=== PATIENT | female | born 1945 | race Caucasian/White ===

== ENCOUNTER → 2024-08-22 | Outpatient (CLI) | payer MEDICARE, BC, SELFPAY ==
[2024-08-22 11:50] LABS: Basophils # (Auto) 0.1 Thou/mm3 (0.0-0.2); Basophils % (Auto) 1 % (0-2.5); Eosinophils # (Auto) 0.1 Thou/mm3 (0.0-0.5); Eosinophils % (Auto) 3 % (0-10); Hematocrit 40.7 % (36.0-46.0); Hemoglobin 13.9 g/dL (12.0-16.0); Immature Granulocytes % (Auto) 0 % (0-0); Immature Granulocytes Auto 0.01 Thou/mm3 (0.00-0.00); Lymphocytes # (Auto) 1.5 Thou/mm3 (1.0-4.8); Lymphocytes % (Auto) 31 % (10-50); Mean Corpuscular HGB Conc 34.2 g/dl (31.0-37.0); Mean Corpuscular Volume 94 fL (80-100); Monocytes # (Auto) 0.5 Thou/mm3 (0.0-0.8); Monocytes % (Auto) 11 % (0-12); Neutrophils # (Auto) 2.5 Thou/mm3 (1.8-7.7); Neutrophils % (Auto) 53 % (37-80); Nucleated Red Blood Cell % 0 /100 WBC (0); Platelet Count 273 Thou/mm3 (140-440); RDW Standard Deviation 48.4 fL (36.4-46.3); Red Blood Count 4.35 Miln/mm3 (4.00-5.20); White Blood Count 4.7 Thou/mm3 (3.6-11.0)
[2024-08-22 12:09] LABS: Alanine Aminotransferase 18 U/L (10-49); Albumin, Serum 4.6 gm/dL (3.4-4.8); Albumin/Globulin Ratio 1.8 (1.2-2.2); Alkaline Phosphatase 69 U/L (46-116); Anion Gap 8 (7-16); Aspartate Amino Transferase 22 U/L (0-34); BUN/Creatinine Ratio 14 Ratio (12-20); Bilirubin,Total 0.6 mg/dL (0.3-1.2); Blood Urea Nitrogen 11 mg/dL (9-23); Calcium 10.2 mg/dL (8.3-10.6); Calcium (Corrected) 10.2 mg/dL (8.5-10.1); Carbon Dioxide 26.5 mMol/L (20.0-31.0); Chloride 102 mMol/L (98-107); Creatinine (Component) 0.8 mg/dL (0.6-1.3); Globulin 2.6 gm/dL (2.3-3.5); Glucose 98 mg/dL (74-106); Osmolality,Calculated 271 (275-295); Potassium 4.3 mMol/L (3.4-5.1); Sodium 136 mMol/L (136-145); Total Protein 7.2 gm/dL (5.7-8.2); eGFR > 60 See Note
[2024-08-22 12:31] LABS: CA 15-3 12.5 U/mL (<32.4); Carcinoembryonic Antigen 1.9 ng/mL (0.0-5.0)
== END | disposition home or self-care (01) ==
LOC: SCTO 10:00
PROVIDERS: PCP Internal Medicine; Referring Provider Nurse Practitioner Family; Visit Provider Nurse Practitioner Family
DX: C50.512 Malignant neoplasm of lower-outer quadrant of left female breast (principal)
CPT/HCPCS: 36415; 80053; 82378; 85025; 86300

== ENCOUNTER 2024-08-27 11:23 | Outpatient (RCR) | payer MEDICARE, BC, SELFPAY ==
--- NOTE | 2024-09-02 06:05 | CTCFLWUP_ITS ---
Patient: CHANTAL WALKER : 1945 Page 2 of 2 FOLLOW UP NOTE DATE OF SERVICE: 08/27/2024 NAME: CHANTAL WALKER ACCOUNT: [id number] : 1945 AGE: 79 REASON FOR VISIT: Follow-up on stage I breast cancer diagnosed in 2019 INTERVAL HISTORY: Patient is 79-year-old woman with a history of stage I breast cancer diagnosed in 2019. Patient has been on letrozole and not tolerating well Today patient is very concerned that she was gaining weight and have low energy. Patient is saying t hat she has increased her cardiovascular risk with the letrozole and would like to stop it. Patient says that she is very active and do not think her cancer will come back. PREVIOUS NOTE: Chantal Walker is a 79-year-old ENG speaking female with following oncolog y history. 12/04/2018: Screening mammograms done in [place] reportedly showed a 1 cm oval nodule in the left [address] st. 12/31/2018: Patient had ultrasound-guided biopsy of the left breast with marking device. 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 Oncotype DX: Recurrence score 4. Distant recurrence risk at 9 years 3%. 02/08/2019: Patient had left breast partial mastectomy and sentinel lymph node biopsy. She was found to have a 0.6 x 0.5 x 0.4 cm small slight firm area. Pathology showed encapsulated papillary carcinoma, solid varian t. Negative for conventional invasive ductal carcinoma. 2 sentinel lymph nodes were negative for metastatic disease. 05/06/2019?06/04/2019: Patient received 5256 cGy radiation to the left breast. 08/25/2019: Bone density test?Impression: There is osteopenia based on lumbar spine measurements. There is osteopenia based on hip measurements Lumbar mineralization is increased 1.2% compared with A pri2016 Hip mineralization is increased 5.8% compared with January 10, 2017 09/24/2019: Patient was started on letrozole. Advised her to continue taking calcium and vitamin D tab let on a daily basis. 03/04/2021: Left axillary biopsy? 07/28/2021: Ultrasound of the left breast?BI-RADS Category 1: Negative study. 11/17/2021: Bone density test? 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 Currently on adjuvant letrozole as well as calcium tablets p.o. twice daily. 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 Aspirin Child - 81 mg As directed 2. Benadryl - 25 mg 1 Capsule As needed 3. Bystolic - 10 mg Daily 4. Calcium 600 + D(3) - 600 mg(1,500mg) -400 unit 1 tab Twice a Day 5. chlorthalidone - 25 mg 1 tab As directed 6. doxazosin - 2 mg Twice a Day 7. ibuprofen - 200 mg 2 Capsule Every day before sleep 8. KRILL OIL - 750 mg As directed 9. latanoprost - As directed 10. letrozole - 2.5 mg 1 tab Daily 11. multivitamin - 1 Capsule Daily 12. simvastatin - 20 mg As directed Medications Last Reconciled by Jennifer Rudolph MA on 08/27/2024 ALLERGIES: No Known Allergies; No Known Drug Allergies REVIEW OF SYSTEMS: A complete 14-point review of systems was performed and is negative except as noted in interval histo ry. PHYSICAL EXAMINATION: VITAL SIGNS: Temperature?99, B/P?168/93, Oxygen?Saturation?97% Weight?135?lbs PAIN: 0 - No pain ECOG Performance Status: 0 - Asymptomatic and fully active GENERAL APPEARANCE: Appears well, in no apparent distress, appropriately interactive. HEENT: Normocephalic, no temporal wasting, normal conjunctiva, no scleral icterus, normal hearing, li ps without lesions, neck normal range of motion. CARDIOVASCULAR: Not assessed. PULMONARY: Normal respiratory effort, no respiratory distress or use of accessory muscles, speaking i n full sentences, no tachypnea. EXTREMITIES: No pedal edema or cyanosis. SKIN: Normal skin appearance. NEUROLOGIC: Alert and ORIENTED x4. PSHYCHIATRIC: Appropriate affect, mood normal, behavior normal, intact thought and speech. LABORATORY DATA: I have personally reviewed and interpreted each of the patient?s relevant lab tests, abnormal finding s are below: Date 08/22/24 ??WHITE?BLOOD?COUNT?(Thou/mm3) 4.7 ??RED?BLOOD?COUNT?(Miln/mm3) 4.35 ??HEMOGLOBIN?(gm/dl) 13.9 ??HEMATOCRIT?(%) 40.7 ??PLATELET?COUNT?(Thou/mm3) 273 ??NEUTROPHILS?%,?AUTO?(%) 53 ??LYMPH?%,?AUTO?(%) 31 ??NEUTROPHILS,?AUTO?(Thou/mm3) 2.5 IMPRESSION/PLAN: #1. 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 Patient do not want to continue letrozole She does not want to do tamoxifen later No evidence of recurrence Continue to monitor every 6 months Advised to do yearly mammograms CBC CMP CA 15-3 before next visit #2. Osteopenia, DEXA done on 01/30/2024 Continue calcium twice daily. Reports she was unable to tolerate Fosamax many years ago, due to jaw pain. Reclast previously ordered, patient aware that biphosphonate treatment dental clearance is needed karma or to starting Reclast, patient is unsure if she is going to proceed with Reclast at this time due to possible dental work soon. #3. Hypertension patient do not believe that her blood pressure is real I extensively counseled that she may stroke out or have myocardial infarction secondary to uncontroll ed blood pressure She want to stop letrozole to see if her blood pressure resolves itself Counseled and advised to continue following up with PCP for management. CBC CMP CA 15-3 yearly mammogram RETURN TO CLINIC: 6 months BILLING AND COMPLIANCE: I reviewed external records from providers outside my specialty as summarized above. I spent a total of 50 minutes on this patient?s care on the day of their visit excluding time spent related to any bi lled procedures. This time includes time spent with the patient as well as time spent documenting in the medical record, reviewing patients records and tests, obtaining history, placing orders, communi cating with other healthcare professionals, counseling the patient, family or caregiver, and/or care coordination for the diagnoses above. Electronically Signed by: Gilbert Jacobs MD T: 6:03 AM CC: Atif?Bart,? PCP: Dash Bonner Referring: Dash Bonner This document was completed utilizing speech recognition software. Grammatical errors, random word in sertions, pronoun errors, and incomplete sentences are an occasional consequence of this system due t o software limitations, ambient noise, and hardware issues. Any formal questions or concerns about th e content, text or information contained within the body of this dictation should be directly address ed to the provider for clarification.
== END 2024-09-17 23:59 | disposition home or self-care (01) ==
LOC: SCTC 11:23
PROVIDERS: PCP Internal Medicine; Referring Provider Internal Medicine; Visit Provider Internal Medicine Hematology & Oncology
DX: Z08 Encounter for follow-up examination after completed treatment for malignant neoplasm (principal); Z85.3 Personal history of malignant neoplasm of breast; Z90.12 Acquired absence of left breast and nipple; M85.89 Other specified disorders of bone density and structure, multiple sites; I10 Essential (primary) hypertension
CPT/HCPCS: 99212; G0463

== ENCOUNTER → 2024-11-07 | Outpatient (CLI) | payer MEDICARE, BC, SELFPAY ==
[2024-11-07 10:54] LABS: Alanine Aminotransferase 16 U/L (10-49); Albumin, Serum 4.3 gm/dL (3.4-4.8); Albumin/Globulin Ratio 1.7 (1.2-2.2); Alkaline Phosphatase 75 U/L (46-116); Anion Gap 8 (7-16); Aspartate Amino Transferase 17 U/L (0-34); BUN/Creatinine Ratio 17 Ratio (12-20); Bilirubin,Total 0.7 mg/dL (0.3-1.2); Blood Urea Nitrogen 12 mg/dL (9-23); Carbon Dioxide 25.5 mMol/L (20.0-31.0); Cardiac Risk Estimate 2.9 RATIO (3.7-5.6); Chloride 102 mMol/L (98-107); Cholesterol 188 mg/dL (132-200); Creatinine (Component) 0.7 mg/dL (0.6-1.3); Globulin 2.6 gm/dL (2.3-3.5); Glucose 96 mg/dL (74-106); HDL Cholesterol 65 mg/dL (40-60); LDL Cholesterol,Calculated 104 mg/dL (0-130); Osmolality,Calculated 269 (275-295); Potassium 4.4 mMol/L (3.4-5.1); Sodium 135 mMol/L (136-145); Total Protein 6.9 gm/dL (5.7-8.2); Triglycerides 94 mg/dL (30-150); eGFR > 60 See Note
== END | disposition home or self-care (01) ==
PROVIDERS: PCP Internal Medicine; Referring Provider Internal Medicine; Visit Provider Internal Medicine
DX: I10 Essential (primary) hypertension (principal); E78.5 Hyperlipidemia, unspecified
CPT/HCPCS: 36415; 80053; 80061

== ENCOUNTER → 2024-11-29 | Outpatient (CLI) | payer MEDICARE, BC, SELFPAY ==
[2024-11-29 11:10] LABS: Albumin, Serum 4.2 gm/dL (3.4-4.8); Anion Gap 8 (7-16); BUN/Creatinine Ratio 21 Ratio (12-20); Blood Urea Nitrogen 17 mg/dL (9-23); Calcium 9.7 mg/dL (8.3-10.6); Calcium (Corrected) 9.7 mg/dL (8.5-10.1); Carbon Dioxide 29.2 mMol/L (20.0-31.0); Chloride 98 mMol/L (98-107); Creatinine (Component) 0.8 mg/dL (0.6-1.3); Glucose 102 mg/dL (74-106); Osmolality,Calculated 271 (275-295); Potassium 4.6 mMol/L (3.4-5.1); Sodium 135 mMol/L (136-145); eGFR > 60 See Note
== END | disposition home or self-care (01) ==
PROVIDERS: PCP Internal Medicine; Referring Provider Internal Medicine; Visit Provider Internal Medicine
DX: I10 Essential (primary) hypertension (principal)
CPT/HCPCS: 36415; 80069

== ENCOUNTER → 2024-12-03 | Outpatient (CLI) | payer MEDICARE, BC, SELFPAY ==
--- NOTE | 2024-12-03 13:52 | XR_ITS ---
Examination: Retroperitoneal ultrasound, complete Technique: Multiple high resolution grayscale images of the retroperitoneum obtained, including kidneys and bladder. Exam date and time:December 03, 2024 1400 hours INDICATIONS: Uncontrolled hypertension one month FINDINGS: Right kidney 11.2 cm cortex 1.1 cm 10 mm upper pole cyst 18 mm lower pole cyst Left kidney 10.3 cm cortex 1.8 cm Minimal left hydronephrosis 9 mm upper pole cyst Mild bilateral renal parenchymal scar formation IMPRESSION: Bilateral renal cortical thinning Mild bilateral renal parenchymal scar formation Minimal left hydronephrosis No bladder mass
--- NOTE | 2024-12-03 13:52 | XR_ITS ---
Examination: Renal sonography Renal Doppler sonographic evaluation of the kidneys Exam date and time: December 03, 2024 1435 hours INDICATIONS: Uncontrolled hypertension beginning several months ago TECHNIQUE AND FINDINGS: Right kidney 11.0 cm Elevation of peak systolic velocity in the mid right renal artery Renal aortic ratio 3.0 Mild elevation resistive indices Left kidney 9.7 cm Elevation peak systolic velocity in the distal renal artery Mild elevation resistive indices Renal aortic ratio 4 IMPRESSION: Sonographic Doppler findings of moderate right and significant left renal artery stenosis Recommend correlation with MRA renal arteries without contrast follow-up
[2024-12-03 15:28] LABS: Misc Send Out* See Sep Rpt
[2024-12-10 07:45] LABS: Aldosterone* 2 ng/dL
[2024-12-12 06:31] LABS: Renin Activity, Plasma* 0.29 ng/mL/h (0.25-5.82)
== END | disposition home or self-care (01) ==
LOC: COPL 13:22
PROVIDERS: PCP Internal Medicine; Referring Provider Internal Medicine; Visit Provider Internal Medicine
DX: I10 Essential (primary) hypertension (principal)
CPT/HCPCS: 36415; 76770; 82088; 84244; 93975

== ENCOUNTER 2025-01-23 09:55 | Day surgery (SDC) | payer MEDICARE, BC, SELFPAY ==
[2025-01-21 17:31] VITALS: BMI 19.8
--- NOTE | 2025-01-22 10:25 | EKG_ITS ---
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
[2025-01-22 12:54] LABS: Basophils # (Auto) 0.1 Thou/mm3 (0.0-0.2); Basophils % (Auto) 1 % (0-2.5); Eosinophils # (Auto) 0.1 Thou/mm3 (0.0-0.5); Eosinophils % (Auto) 1 % (0-10); Hematocrit 36.8 % (36.0-46.0); Hemoglobin 13.2 g/dL (12.0-16.0); Immature Granulocytes % (Auto) 0 % (0-0); Immature Granulocytes Auto 0.02 Thou/mm3 (0.00-0.00); Lymphocytes # (Auto) 1.2 Thou/mm3 (1.0-4.8); Lymphocytes % (Auto) 16 % (10-50); Mean Corpuscular HGB Conc 35.9 g/dl (31.0-37.0); Mean Corpuscular Volume 89 fL (80-100); Monocytes # (Auto) 0.9 Thou/mm3 (0.0-0.8); Monocytes % (Auto) 12 % (0-12); Neutrophils # (Auto) 4.9 Thou/mm3 (1.8-7.7); Neutrophils % (Auto) 70 % (37-80); Nucleated Red Blood Cell % 0 /100 WBC (0); Platelet Count 350 Thou/mm3 (140-440); RDW Standard Deviation 42.9 fL (36.4-46.3); Red Blood Count 4.13 Miln/mm3 (4.00-5.20); White Blood Count 7.1 Thou/mm3 (3.6-11.0)
[2025-01-22 13:01] LABS: Anion Gap 5 (7-16); BUN/Creatinine Ratio 16 Ratio (12-20); Blood Urea Nitrogen 13 mg/dL (9-23); Calcium 9.5 mg/dL (8.3-10.6); Carbon Dioxide 27.3 mMol/L (20.0-31.0); Chloride 93 mMol/L (98-107); Creatinine (Component) 0.8 mg/dL (0.6-1.3); Estimated Creatinine Clearance 51.9 mL/min (>60); Glucose 84 mg/dL (74-106); Osmolality,Calculated 250 (275-295); Potassium 4.6 mMol/L (3.4-5.1); Sodium 125 mMol/L (136-145); eGFR > 60 See Note
[2025-01-22 13:02] LABS: INR 0.9 (0.9-1.3); Partial Thromboplastin Time 29.3 Seconds (22.0-36.0); Prothrombin Time 10.3 Seconds (9.0-12.2)
[2025-01-23] VITALS (17 sets, daily range): BP systolic 121–177; BP diastolic 65–96; PULSE 54–68; RESP 12–22; TEMP 36.2–36.5; O2SAT 99–100
--- NOTE | 2025-01-23 14:04 | ESOP_ITS ---
RE: ANIA OCHOA : 1945 DATE OF OPERATION: 01/23/2025 PROCEDURE PERFORMED: 1. left heart catheterization, coronary angiogram left ventricular angiogram, CPT 66524. 2. Conscious sedation 30 minutes duration. 3. Ultrasound-guided access, right radial artery. 4. Selective cannulation of right and left renal arteries and bilateral selective renal angiogram. CPT 37023 DIAGNOSES: Coronary artery disease, abnormal stress test, renovascular hypertension, and renal artery stenosis. HISTORY AND INDICATIONS: The patient is a 79-year-old female with history of hypertension, hypercholesterolemia, recurrent episodes of shortness of breath, unspecified angina, cardiac stress test with nuclear scan was abnormal showed mild inferior wall ischemia. Coronary angiogram was recommended to assess the patient is a candidate for intervention. The patient also has severe hypertension, difficulty controlling four medications and also had renal ultrasound as well as renal artery Duplex scan showed suspicious for right renal artery stenosis. Bilateral renal angiogram was recommended and coronary angiogram was recommended for further assessment. DESCRIPTION OF PROCEDURE: The patient was brought to [facility] catheterization laboratory. She was given 2 mg of Versed and 50 mcg of fentanyl for sedation. Right radial approach was taken. Right radial artery was cannulated with micropuncture technique. Ultrasound guidance was used. Apparently with a right radial artery, 5-Upper Sorbian sheath was introduced. Selective right and left coronary angiogram performed. Left heart catheterization, left ventricular angiogram performed by TIG-4, 5-Upper Sorbian diagnostic catheter. Left coronary angiogram performed by TIG-4 diagnostic catheter. Right coronary angiogram performed by FR4 diagnostic catheter. Using AL1, I was able to cross over the left side to the aorta, but unable to reach the renal artery, so therefore for diagnostic catheter switch to the femoral approach. Right femoral artery was cannulated by micropuncture technique and a 5-Upper Sorbian sheath was introduced. A 5-Upper Sorbian FR4 diagnostic catheter was used to perform selective left renal angiogram and nonselective right renal angiogram was also performed by selective cannulation of right renal artery. Bilateral renal angiogram performed. The patient tolerated the procedure well. No complications. Findings are as follows. Cardiac catheterization showed the following findings. Hemodynamics: Left ventricular pressure 130, EDP is 5, aortic pressure 130/75. No gradient across the aortic valve. Left ventricular angiogram showed normal left ventricular wall motion, ejection fraction 70%. Coronary angiogram showed following findings: Right coronary artery large and dominant showed calcification of the proximal mid segment. There is evidence of 40% stenosis of the proximal right coronary artery, 50% to 60% stenosis of mid right coronary artery calcification, not significant or intervention. PDA and posterolateral branches are normal. Left coronary system, left main coronary artery is normal. There is some calcification. No stenosis. Left anterior descending artery showed calcification, no stenosis. First diagonal branch and left anterior descending artery, a 2.5 mm vessel showed 70% to 80% stenosis, discrete lesion. Second vessel is nondominant, appeared normal, gives off obtuse marginal branch. Bilateral renal angiogram findings are as follows: Abdominal aorta appears to be normal. No evidence of abdominal aortic aneurysm. Right renal artery showed mild calcification and mild plaque 10% stenosis of the proximal right renal artery. No evidence of fibromuscular dysplasia. Left renal artery showed mild calcification of the ostium. No significant stenosis. There is mild plaque with 10 to 20% narrowing in the proximal left renal artery. SUMMARY OF FINDINGS: 1. Moderate right coronary artery stenosis, 50% to 60% stenosis. 2. Moderate 70% stenosis of the left anterior descending artery - diagonal branch of the left anterior descending artery only. 3. Mild stenosis of both right and left renal arteries less than 20% stenosis. RECOMMENDATIONS: 1. The patient is reassured there is no evidence of renal artery stenosis that required intervention. 2. The patient does have 70% to 80% stenosis of LAD-first diagonal branch of the left anterior descending artery, which is 2.5 mm vessel. We will continue medical management. The patient also has moderate right coronary artery stenosis, will be monitored. Aggressive statin therapy to LDL cholesterol to a goal of 50 and controlled present antihypertensive drug therapy. If she has significant worsening of angina and maximum medical management, she is a candidate for PCI of the right coronary artery, possibly diagonal branch of the left anterior descending artery. Currently, maximum medical management is recommended. cc: Dash Bonner MD DT: 13:13:19 TT: 14:03:00 Ref: [id number] - TID: [id number] MTDD
--- NOTE | 2025-01-23 15:45 | PC.NURSE ---
1335 patient is awake, alert, breathing unlabored, s/p C with PCI, TR band to right wrist, with no bleeding or hematoma. Arterial right groin sheat removed by Robyn SHERIDAN at 1315, manual pressure applied for 20 minutes, dressing applied, no bleeding or hematoma noted. Report received from Robyn SHERIDAN patient to recover until 1630 or 1hr post TR band removal. 1410 1ml air air removed from TR band , no bleeding or hematoma noted 1425 3ml air removed from TR band, no bleeding or hematoma noted 1440 small amount of bleeding noted to TR band site, 3ml air inserted, bleeding stopped 1510 2ml air removed from TR band, no bleeding or hematoma noted 1525 2ml air removed from TR band, no bleeding or hematoma noted 1545 3ml air removed from TR band, no bleeding or hematoma noted
--- NOTE | 2025-01-23 16:04 | PC.NURSE ---
1558 aptient awake, alert, breathing unlabored, dressing to righg groin dry with no bleeding or hematoma, report given to Robyn SHERIDAN, patient to be discharged home 1hr post TR band removal
== END 2025-01-23 17:10 | disposition home or self-care (01) ==
PROVIDERS: PCP Internal Medicine; Referring Provider Internal Medicine Cardiovascular Disease; Visit Provider Internal Medicine Cardiovascular Disease
PROC: (CPT 93458; principal; 2025-01-23 11:30)
DX: I25.119 Atherosclerotic heart disease of native coronary artery with unspecified angina pectoris (principal); I15.0 Renovascular hypertension; I10 Essential (primary) hypertension; E78.00 Pure hypercholesterolemia, unspecified; Z82.49 Family history of ischemic heart disease and other diseases of the circulatory system; Z79.899 Other long term (current) drug therapy; I70.1 Atherosclerosis of renal artery
CPT/HCPCS: 93458; 36252; 36415; 80048; 85025; 85610; 85730; 93005; 99152; 99153; A4649; C1769; C1887; C1894; J0171; J0360; J0461; J1643; J2250; J2310; J2371; J3010; J3490

== ENCOUNTER 2025-02-21 23:51 | Inpatient (IN) | payer MEDICARE, BC, SELFPAY ==
[2025-02-21 23:53] VITALS: BMI 19.5
[2025-02-22] VITALS (10 sets, daily range): BP systolic 119–179; BP diastolic 68–89; PULSE 63–78; RESP 16–19; TEMP 36.3–37.2; O2SAT 97–100
--- NOTE | 2025-02-22 00:07 | XR_ITS ---
Examination: CT brain head without contrast. 2-D sagittal coronal reconstructions Date and time of exam:February 22, 2025, 0057 hours INDICATIONS: Patient fell today with injury to the head, head pain CTDI: vol (mGy):47 DLP: (mGycm):935 Technique: Multiple CT axial sections of the brain have been obtained, 5 mm slice thickness. Contrast has not been administered. 2-D sagittal, coronal reconstructions have been obtained Low dose protocols were performed. One or more of the following dose reduction techniques were used; automated exposure control, adjustment of the mA and/or KV according to patient size, use of iterative reconstruction technique. Findings: No significant ventricular enlargement. Intra-axial or extra-axial hemorrhage density is not seen. No mass effect or midline shift Basal cisterns are not remarkable. Fourth ventricle is midline. Cranial vault intact. Impression: I do not visualize a definite acute hemorrhage but clinical correlation is advised and short-term follow-up recommended as clinically warranted
--- NOTE | 2025-02-22 00:07 | XR_ITS ---
Examination: CT cervical spine without contrast 2-D sagittal reconstructions 2-D coronal reconstructions 3-D reconstructions. Exam date and time:February 22, 2025 0057 hours INDICATIONS: Patient fell today with injury to the neck, neck pain CTDI:vol (mGy) 743 DLP: (mGycm) 160 Technique: Multiple 2 mm axial sections of the cervical spine have been obtained. The coronal and sagittal reconstructions have been obtained. 3-D reconstructions have been obtained. Low dose protocols were performed. One or more of the following dose reduction techniques were used; automated exposure control, adjustment of the mA and/or KV according to patient size, use of iterative reconstruction technique. Findings: Axial sections demonstrate intact base of the skull. Grade 1 anterolisthesis of C3 on C4, C4 on C5 and C1 exhibit satisfactory relationship to the odontoid. No acute cervical vertebral body fracture seen. Alignment posterior spinous processes satisfactory. Impression: No acute cervical fracture.
--- NOTE | 2025-02-22 00:16 | PD.EDHEAD ---
ED Head Injury RME/HPI General Chief complaint: Head Injury Stated complaint: TRIP AND FALL HEAD LAC DENIES LOC Time Seen by Provider: 02/22/25 00:07 Arrival date/time: 02/21/25 23:51 79F with history of HTN presents to ED with L head lac after trip and fall. Patient denies LOC, AMS, seizures, N/V, and vision changes. Patient has not had a tetanus shot in the past 5 years. Limitations: no limitations Related Data Home Medications ?Medication ?Instructions ?Recorded ?Confirmed latanoprost 0.005 % eye drops 1 drp ophthalmic (eye) QDAY 03/02/21 02/22/25 diphenhydramine HCl 25 mg capsule 25 mg PO QDAY PRN allergy symptoms 01/23/25 02/22/25 (Benadryl) krill oil 500 mg capsule 500 mg PO QDAY 01/23/25 02/22/25 nebivolol 5 mg tablet (Bystolic) 5 mg PO QDAY 01/23/25 02/22/25 ibuprofen 200 mg tablet (IBU-200) 400 mg PO HS PRN pain 02/22/25 02/22/25 multivitamin (Multiple Vitamins 1 tab PO QDAY 02/22/25 02/22/25 tablet) rosuvastatin 20 mg tablet 20 mg PO HS 02/22/25 02/22/25 calcium 600 mg (as cap PO Q12H 02/23/25 carbonate)-vitamin D3 5 mcg (200 unit) capsule (Calcium 600 + D(3)) Previous Rx's ?Medication ?Instructions ?Recorded sodium chloride 1,000 mg soluble 1,000 mg PO BID hyponatremia 14 02/24/25 tablet days #28 tabs Allergies Allergy/AdvReac Type Severity Reaction Status Date / Time No Known Allergies Allergy Verified 02/21/25 23:57 Review of Systems Review of Systems Systems Reviewed: All systems reviewed, normal except as documented Constitutional Constitutional: Reports system reviewed and no additional complaints, except as documented, Denies fever(s) and Denies headache(s) ENT Ears, Nose, Mouth, and Throat: Denies disequilibrium and Denies headache(s) Cardiovascular Cardiovascular: Reports system reviewed and no additional complaints, except as documented, Denies chest pain and Denies dyspnea Respiratory Respiratory: Reports system reviewed and no additional complaints, except as documented, Denies cough and Denies dyspnea Gastrointestinal Gastrointestinal: Reports system reviewed and no additional complaints, except as documented, Denies abdominal pain, Denies nausea and Denies vomiting Integumentary/Breasts Skin/Breast: Reports as per HPI and Reports skin pain Neurologic Neurologic: Reports system reviewed and no additional complaints, except as documented, Denies confusion, Denies disequilibrium and Denies headache(s) Psychiatric Psychiatric: Denies confusion Past Medical History Past Medical History NEUROLOGIC: Negative Neurological Disorders or Seizures CARDIAC: Positive Cardiac Disorders, Hypercholesterolemia and Hypertension; Negative Congestive Heart Failure or Edema RESPIRATORY: Negative Chronic Obstructive Pulmonary Disease (COPD), Asthma or Sleep Apnea GASTROINTESTINAL: Negative Gastrointestinal Disorders or Hepatitis GENITOURINARY: Negative Genitourinary Disorders or Renal Disease REPRODUCTIVE: Positive Previous Pregnancies MUSCULOSKELETAL: Positive Musculoskeletal Disorders, Arthritis and Carpal Tunnel Syndrome (LEFT); Negative Osteoporosis or Fractures ENDOCRINE: Negative Endocrine Disorders, Diabetes Mellitus Type 1 or Diabetes Mellitus Type 2 HEMATOLOGIC: Negative Blood Disorders or Anemia OTHER HISTORY: Positive Chicken Pox, Measles, Mumps, Rubella ([place] Measles) and Pertussis; Negative Autoimmune Disease, Shingles, Falls, Blood Transfusions, Anesthesia Reactions, MRSA, Human Immunodeficiency Virus (HIV), Clostridium Difficile or Cancer Family History FAMILY HISTORY: Positive Family Cardiac Disorders and Family Surgery; Negative Family Psychiatric Problems, Family Respiratory Disorders, Family Gastrointestinal Problems, Family Cancer or Family Anesthesia Reaction Surgical History SURGICAL: Positive Tonsillectomy and Lumpectomy (LEFT); Negative Cardiac Surgery, Endocrine Surgery, Abdominal Surgery, Nephrectomy or Neurologic Surgery Social History SMOKING STATUS: Never smoker ED Exam General Limitations: Present no limitations General appearance: Present alert and in no apparent distress Expanded Head Exam Head exam physical: Present laceration (2 cm L posterior) Eye Eye exam: Present normal appearance, PERRL and EOMI ENT ENT exam: Present normal exam, normal oropharynx and mucous membranes moist Neck Neck exam: Present normal inspection, full ROM and trachea midline Chest Chest inspection: Present normal inspection and symmetric chest wall rise Respiratory Respiratory exam: Present normal lung sounds bilaterally Cardiovascular Cardiovascular exam: Present regular rate, normal rhythm and normal heart sounds Abdominal Exam Abdominal exam: Present soft and normal bowel sounds Extremities Exam Extremities exam: Present normal inspection and full ROM Back Exam Back exam: Present normal inspection and full ROM Neurological Exam Neurological exam: Present alert, oriented X3 and CN II-XII intact Psychiatric Psychiatric exam: Present normal affect and normal mood Skin Skin exam: Present warm, dry, intact and normal color Course Quality Measures none Orders Category Date Time Status Insert IV NOW Care 02/22/25 03:47 Completed Stapler to Beside ONCE Care 02/22/25 00:19 Completed Wound Care NOW Care 02/22/25 00:[address] cervical spine wo con Stat Exams 02/22/25 00:[address] head/brain wo con Stat Exams 02/22/25 00:[address] head/brain wo con Stat Exams 02/22/25 05:27 Completed Alcohol, Blood Medical Stat Lab 02/22/25 07:36 Completed CBC Stat Lab 02/22/25 02:52 Completed CMP [Comprehensive Metabolic Panel] Stat Lab 02/22/25 02:52 Completed Drug Screen,Urine Stat Lab 02/22/25 12:05 Completed INR [Prothrombin Time with INR] Stat Lab 02/22/25 02:52 Completed PTT [Partial Thromboplastin Time] Stat Lab 02/22/25 02:52 Completed Sodium,Urine Random Stat Lab 02/22/25 12:05 Completed Thyroid Stimulating Hormone Stat Lab 02/22/25 02:52 Completed Uric Acid Stat Lab 02/22/25 02:52 Completed Urinalysis, C/S if Indicated Stat Lab 02/22/25 12:05 Completed Urine Culture Stat Lab 02/22/25 12:05 Completed TET,DIP/PERT AC (Adult)-Tdap [Boostrix Adult (Tdap) Med 02/22/25 00:07 Discontinued Vacc] 0.5 ml IMI .ONCE ONE Vital Signs Vital signs: Vital Signs Temperature 97.4 F 02/22/25 00:04 Pulse Rate 67 02/22/25 00:04 Respiratory Rate 18 02/22/25 00:04 Blood Pressure 170/85 H 02/22/25 00:04 Pulse Oximetry (%) 99 02/22/25 00:04 Oxygen Delivery Method Room Air 02/22/25 00:04 O2 at 99% on RA and WNLs Head Injury MDM Narrative MDM Narrative:: 79F with history of HTN presents to ED with L head lac after trip and fall. Patient denies LOC, AMS, seizures, N/V, and vision changes. Patient has not had a tetanus shot in the past 5 years. Physical exam reveals 2 cm L posterior scalp lac. Normal pupil response and EOM. Gait normal. Speech normal. Patient is afebrile, calm, and alert. GCS 15. Wound cleaned/irrigated and bandaged. Tdap given. CT reveals possible trace bilateral subdural hematomas. Spoke to Dr. Del Rosario, neurosurgeon at [facility], who recommends repeat CT in 6 hours and monitor. Can send to them if getting larger or change in GCS. He does not recommend seizure prophylaxis. Coags and CBC unremarkable. Sodium 118. Spoke to Dr. Del Rosario again, who states it is not relevant to possible subdural hematomas. Original recommendation still applies. Care signed out to colleague. Repeat CT no definite bleed. Patient admitted here. Patient data External records reviewed:: [facility] previous records Clinical information provided by:: patient Social determinants that could affect healthcare access:: none Patient has the following chronic illnesses:: HTN How is presenting disease/condition affected by chronic disease/condition?: no chronic disease Evaluation data The following diagnostics were reviewed and interpreted by me:: radiology exam(s) Lab and/or radiology exams considered but not ordered:: ordered Interpretation Summary: above Medications / Prescriptions Medications or Prescriptions considered but not ordered:: ordered Medication administrations:: Medication Administration History Discontinued Medications Acetaminophen (Acetaminophen 325 Mg Tablet) 650 mg PO Q6H PRN PRN Reason: Fever >101.5 Stop: 03/24/25 09:13 Acetaminophen (Acetaminophen 325 Mg Tablet) 650 mg PO Q6H PRN PRN Reason: Fever >100.3 or pain 1-3 Stop: 03/24/25 09:13 Acetaminophen (Acetaminophen 325 Mg Tablet) 650 mg PO Q6H PRN PRN Reason: Fever >100.3 or pain Stop: 03/24/25 09:13 Last Admin: 02/23/25 03:17 Dose: 650 mg Documented By: Admin: 02/22/25 15:57 Dose: 650 mg Documented By: KD Amlodipine Besylate (Amlodipine Besylate 5 Mg Tablet) 5 mg PO QDAY KRISTIN Stop: 03/25/25 08:59 Last Admin: 02/23/25 09:30 Dose: Not Given Documented By: AV Non-Admin Reason: Patient Refused Diphtheria/Tetanus/Acell Pertussis (Diphth,Pertuss(Acell),Tet Vac 0.5 Ml Syr- Adult) 0.5 ml IMi .ONCE ONE Stop: 02/22/25 00:08 Last Admin: 02/22/25 03:36 Dose: 0.5 ml Documented By: JE Heparin Sodium (Porcine) (Heparin Sod Inj 5000 Unit/Ml Vial) 5,000 unit SC Q8HR [facility] Stop: 03/08/25 13:59 Last Admin: 02/24/25 05:28 Dose: 5,000 unit Documented By: SARAH Co-signed By: SHIMON Admin: 02/23/25 21:50 Dose: 5,000 unit Documented By: SARAH Co-signed By: Admin: 02/23/25 14:21 Dose: 5,000 unit Documented By: CODY Co-signed By: REID Admin: 02/23/25 05:49 Dose: 5,000 unit Documented By: KATHIE Co-signed By: THUY Admin: 02/22/25 21:27 Dose: 5,000 unit Documented By: KATHIE Co-signed By: THUY Admin: 02/22/25 13:46 Dose: 5,000 unit Documented By: JAGDISH Co-signed By: OLEG Lisinopril (Lisinopril 20 Mg Tablet) 40 mg PO QDAY [facility] Stop: 03/25/25 08:59 Last Admin: 02/23/25 09:19 Dose: 40 mg Documented By: CODY Lisinopril (Lisinopril 20 Mg Tablet) 20 mg PO QDAY [facility] Stop: 03/26/25 08:59 Last Admin: 02/24/25 08:38 Dose: Not Given Documented By: CODY Non-Admin Reason: Vital Signs Comments: held for initial bp 87/51 then 104/56. MD Roman notified. Metoclopramide HCl (Metoclopramide Inj 5 Mg/Ml Vial 2 Ml) 10 mg IVP Q6H PRN; Protocol PRN Reason: NAUSEA OR VOMITING Stop: 03/24/25 09:13 Nebivolol (Nebivolol Hcl 5 Mg Tablet (Non-Formulary)) 5 mg PO QDAY [facility] Stop: 03/25/25 08:59 Last Admin: 02/24/25 08:39 Dose: Not Given Documented By: CODY Non-Admin Reason: Vital Signs Comments: held for initial bp 87/51 then 104/56. MD Roman notified. Admin: 02/23/25 09:20 Dose: 5 mg Documented By: CODY Pantoprazole Sodium (Pantoprazole 40 Mg Tablet) 40 mg PO QDAY [facility] Stop: 03/25/25 08:59 Last Admin: 02/24/25 08:32 Dose: 40 mg Documented By: Admin: 02/23/25 09:19 Dose: 40 mg Documented By: CODY Sodium Chloride (Sodium Chloride 1 Gm Tablet) 1 gm PO X1 ONE Stop: 02/23/25 08:48 Last Admin: 02/23/25 09:34 Dose: 1 gm Documented By: CODY Sodium Chloride (Sodium Chloride 1 Gm Tablet) 1 gm PO BID KRISTIN Stop: 03/25/25 20:59 Sodium Chloride (Sodium Chloride 1 Gm Tablet) 1 gm PO BID KRISTIN Stop: 03/25/25 20:59 Last Admin: 02/24/25 08:32 Dose: 1 gm Documented By: Admin: 02/23/25 21:51 Dose: 1 gm Documented By: SARAH Spironolactone (Spironolactone 25 Mg Tablet) 50 mg PO QAM [facility] Stop: 03/25/25 08:59 Last Admin: 02/24/25 08:39 Dose: Not Given Documented By: CODY Non-Admin Reason: Vital Signs Comments: held for initial bp 87/51 then 104/56. MD Roman notified. Admin: 02/23/25 09:20 Dose: 50 mg Documented By: CODY above Consultations Consultation(s) initiated? (list below): Yes Diagnosis Differential diagnosis head injury: concussion without loss of consciousness, epidural hematoma, closed head injury, subarachnoid hematoma, postconcussion syndrome, subdural hematoma and other (laceration, subdural hematoma, hyponatremia) Most likely diagnosis given after review of the tests above:: subdural hematoma, laceration, and hyponatremia Admission Indicated Admission indicated?: indicated Admission Request Was there a request for admission?: Yes Admission Attestation Admission request attestation: Discussed case with [] from Hospitalist service regarding admission. Discussed patients ED course, exam findings, labs, and radiology results. The Hospitalist [agrees,declines] to accept the patient for admission. Disposition Plan Disposition Plan: Admit Discharge Plan Plan Patient Disposition: Admit Acute Care w/in Hospital Patient condition on transfer: Stable Problem List Clinical Impression: Fall, Acute hyponatremia, Dizziness
--- NOTE | 2025-02-22 02:07 | PRELIM_ITS ---
CT scan of the cervical spine without intravenous contrast (axial sections with sagittal and coronal reformats). February 22, 2025 at 0057 hours Clinical History: Fall Comparison: No prior study is available for comparison. Findings: There is no fracture or subluxation. The prevertebral soft tissues are unremarkable. Inversion of the physiologic cervical lordosis. Degenerative changes of the imaged portions of the spine. Chronic multilevel disc disease. Vascular calcifications. Bilateral apical lung scarring. Hypodense right thyroid nodule, measuring 1.8 cm. Impression: No evidence of fracture or subluxation. Hypodense right thyroid nodule, consider correlation with ultrasound and thyroid function tests. Report Electronically Signed By: Edmar Royal 02/22/2025 2:06:37 AM [EST]
--- NOTE | 2025-02-22 02:19 | PRELIM_ITS ---
CT scan of the head without intravenous contrast (axial sections with sagittal and coronal reformats) February 22, 2025 at 0057 hours Clinical History: Fall. Comparison: None. Findings: Questionable trace of bilateral subdural hematomas along the anterior margins of the temporal convexity. There is no evidence of intracranial mass effect or midline shift. There are periventricular white matter hypodensities, compatible with chronic small vessel ischemia. There is moderate volume loss. The calvarium is intact. The mastoid air cells and the visualized paranasal sinuses are clear. Left posterolateral subcutaneous scalp hematoma. Impression: Questionable trace of bilateral subdural hematomas along the anterior margins of the temporal convexity. Short-term follow-up is recommended Discussion Details: Results verbally communicated to : Dr. Aguayo at 02:02 AM 02/22/2025 Report Electronically Signed By: Edmar Royal 02/22/2025 2:18:36 AM [EST]
--- NOTE | 2025-02-22 02:53 | PC.NURSE ---
0248 [facility] CONTACTED AT THIS TIME.
[2025-02-22 02:57] LABS: Basophils % (Auto) 0 % (0-2.5); Eosinophils # (Auto) 0.1 Thou/mm3 (0.0-0.5); Eosinophils % (Auto) 1 % (0-10); Hemoglobin 12.2 g/dL (12.0-16.0); Immature Granulocytes % (Auto) 0 % (0-0); Immature Granulocytes Auto 0.02 Thou/mm3 (0.00-0.00); Lymphocytes # (Auto) 0.9 Thou/mm3 (1.0-4.8); Lymphocytes % (Auto) 13 % (10-50); Mean Corpuscular Volume 87 fL (80-100); Monocytes # (Auto) 0.7 Thou/mm3 (0.0-0.8); Monocytes % (Auto) 9 % (0-12); Neutrophils # (Auto) 5.3 Thou/mm3 (1.8-7.7); Neutrophils % (Auto) 76 % (37-80); Nucleated Red Blood Cell % 0 /100 WBC (0); Platelet Count 257 Thou/mm3 (140-440); RDW Standard Deviation 40.6 fL (36.4-46.3); Red Blood Count 3.81 Miln/mm3 (4.00-5.20)
[2025-02-22 03:23] LABS: Partial Thromboplastin Time 32.6 Seconds (22.0-36.0); Prothrombin Time 10.5 Seconds (9.0-12.2)
[2025-02-22 03:25] LABS: Alanine Aminotransferase 22 U/L (10-49); Albumin, Serum 5.1 gm/dL (3.4-4.8); Albumin/Globulin Ratio 2.2 (1.2-2.2); Alkaline Phosphatase 57 U/L (46-116); Anion Gap 10 (7-16); BUN/Creatinine Ratio 13 Ratio (12-20); Bilirubin,Total 0.6 mg/dL (0.3-1.2); Blood Urea Nitrogen 12 mg/dL (9-23); Calcium 10.3 mg/dL (8.3-10.6); Calcium (Corrected) 10.3 mg/dL (8.5-10.1); Carbon Dioxide 21.4 mMol/L (20.0-31.0); Chloride 87 mMol/L (98-107); Creatinine (Component) 0.9 mg/dL (0.6-1.3); Estimated Creatinine Clearance 45.4 mL/min (>60); Globulin 2.3 gm/dL (2.3-3.5); Glucose 104 mg/dL (74-106); Osmolality,Calculated 238 (275-295); Potassium 4.6 mMol/L (3.4-5.1); Total Protein 7.4 gm/dL (5.7-8.2); eGFR > 60 See Note
[2025-02-22 03:28] LABS: Sodium 118 mMol/L (136-145)
[2025-02-22] MEDS: DIPHTH,PERTUSS(ACELL),TET VAC 0.5 ML SYR- ADULT IMi (03:36)
--- NOTE | 2025-02-22 05:27 | XR_ITS ---
Examination: CT brain head without contrast. 2-D sagittal coronal reconstructions Date and time of exam:February 22, 2025, 0640 hours Comparison February 22, 2025, 0057 hours INDICATIONS: Patient fell this morning with injury to the head, head pain, subdural hemorrhage along the temporal convexities CTDI: vol (mGy):47 DLP: (mGycm):809 Technique: Multiple CT axial sections of the brain have been obtained, 5 mm slice thickness. Contrast has not been administered. 2-D sagittal, coronal reconstructions have been obtained Low dose protocols were performed. One or more of the following dose reduction techniques were used; automated exposure control, adjustment of the mA and/or KV according to patient size, use of iterative reconstruction technique. Findings: No significant ventricular enlargement. Intra-axial or extra-axial hemorrhage density is not seen. No mass effect or midline shift Basal cisterns are not remarkable. Fourth ventricle is midline. Cranial vault intact. Posterior left scalp soft tissue swelling and right posterior scalp soft tissue swelling Impression: No definite acute hemorrhage noted on this study No mass effect or midline shift
--- NOTE | 2025-02-22 06:30 | PD.EDADDENDU ---
Emergency Room Addendum Addendum Narrative: 0600: Care assumed from Dre Aguayo. Past medical, surgical, social and family history reviewed. Vitals and home medications reviewed. I will assume the care of the patient at this time, pending repeat head CT, cervical CT, and final disposition. Please refer to the emergency department record for history and examination from initial visit.? Physical exam by me shows patient under no acute distress at this time. Patient does have a 2 cm laceration to the left posterior scalp area, with minimum separation the tissue, no active bleed, looks more like an abrasion. It was already cleaned and ointment will be applied. 0830: I called Dr. Bonner and she is vacation, recommended to call hospitalist. 0834: Discussed test HPI, PMHx, lab, radiology results and/or management with hospitalist Dr. Roman. Will admit for further evaluation and management. Accepts patient for admission. Diagnoses: - Fall - Acute hyponatremia - Dizziness Results Objective Laboratory: Laboratory Last Values WBC 7.0 Thou/mm3 (3.6-11.0) 02/22/25 02:52 RBC 3.81 Miln/mm3 (4.00-5.20) L 02/22/25 02:52 Hgb 12.2 g/dL (12.0-16.0) 02/22/25 02:52 Hct 33.0 % (36.0-46.0) L 02/22/25 02:52 MCV 87 fL (80-100) 02/22/25 02:52 MCH 32.0 pg (25.0-35.0) 02/22/25 02:52 MCHC 37.0 g/dl (31.0-37.0) 02/22/25 02:52 RDW Std Deviation 40.6 fL (36.4-46.3) 02/22/25 02:52 Plt Count 257 Thou/mm3 (140-440) D 02/22/25 02:52 Neut % (Auto) 76 % (37-80) 02/22/25 02:52 Lymph % (Auto) 13 % (10-50) 02/22/25 02:52 Howell % (Auto) 9 % (0-12) 02/22/25 02:52 Eos % (Auto) 1 % (0-10) 02/22/25 02:52 Baso % (Auto) 0 % (0-2.5) 02/22/25 02:52 Neut # (Auto) 5.3 Thou/mm3 (1.8-7.7) 02/22/25 02:52 Lymph # (Auto) 0.9 Thou/mm3 (1.0-4.8) L 02/22/25 02:52 Howell # (Auto) 0.7 Thou/mm3 (0.0-0.8) 02/22/25 02:52 Eos # (Auto) 0.1 Thou/mm3 (0.0-0.5) 02/22/25 02:52 Baso # (Auto) 0.0 Thou/mm3 (0.0-0.2) 02/22/25 02:52 Immature Gran # (Auto) 0.02 Thou/mm3 (0.00-0.00) H 02/22/25 02:52 Absolute Nucleated RBC 0.00 Thou/mm3 (0.00-0.00) 02/22/25 02:52 Immature Gran % 0 % (0-0) 02/22/25 02:52 Nucleated RBC % 0 /100 WBC (0) 02/22/25 02:52 PT 10.5 Seconds (9.0-12.2) 02/22/25 02:52 INR 1.0 (0.9-1.3) 02/22/25 02:52 APTT 32.6 Seconds (22.0-36.0) 02/22/25 02:52 Sodium 118 mMol/L (136-145) L* 02/22/25 02:52 Potassium 4.6 mMol/L (3.4-5.1) 02/22/25 02:52 Chloride 87 mMol/L (98-107) L 02/22/25 02:52 Carbon Dioxide 21.4 mMol/L (20.0-31.0) 02/22/25 02:52 Anion Gap 10 (7-16) 02/22/25 02:52 BUN 12 mg/dL (9-23) 02/22/25 02:52 Creatinine 0.9 mg/dL (0.6-1.3) 02/22/25 02:52 Estim Creat Clear Calc 45.4 mL/min (>60) L 02/22/25 02:52 eGFR > 60 See Note (60-) 02/22/25 02:52 BUN/Creatinine Ratio 13 Ratio (12-20) 02/22/25 02:52 Glucose 104 mg/dL (74-106) 02/22/25 02:52 Calculated Osmolality 238 (275-295) L 02/22/25 02:52 Uric Acid 3.6 mg/dL (3.1-7.8) 02/22/25 02:52 Calcium 10.3 mg/dL (8.3-10.6) 02/22/25 02:52 Corrected Calcium 10.3 mg/dL (8.5-10.1) H 02/22/25 02:52 Total Bilirubin 0.6 mg/dL (0.3-1.2) 02/22/25 02:52 ALT 22 U/L (10-49) 02/22/25 02:52 Alkaline Phosphatase 57 U/L (46-116) 02/22/25 02:52 Total Protein 7.4 gm/dL (5.7-8.2) 02/22/25 02:52 Albumin 5.1 gm/dL (3.4-4.8) H 02/22/25 02:52 Globulin 2.3 gm/dL (2.3-3.5) 02/22/25 02:52 Albumin/Globulin Ratio 2.2 (1.2-2.2) 02/22/25 02:52 TSH 3.41 uIU/mL (0.55-4.78) 02/22/25 02:52 Ethyl Alcohol Cancelled 02/22/25 02:52 Imaging: Procedure(s): CT head/brain wo [facility] Accession Number(s): [id number] cc: Luis Carlos Cervantes MD; Mau Aguayo PA-C; Dash Bonner MD~ Examination: CT brain head without contrast. 2-D sagittal coronal reconstructions Date and time of exam:February 22, 2025, 0057 hours INDICATIONS: Patient fell today with injury to the head, head pain CTDI: vol (mGy):47 DLP: (mGycm):935 Technique: Multiple CT axial sections of the brain have been obtained, 5 mm slice thickness. Contrast has not been administered. 2-D sagittal, coronal reconstructions have been obtained Low dose protocols were performed. One or more of the following dose reduction techniques were used; automated exposure control, adjustment of the mA and/or KV according to patient size, use of iterative reconstruction technique. Findings: No significant ventricular enlargement. Intra-axial or extra-axial hemorrhage density is not seen. No mass effect or midline shift Basal cisterns are not remarkable. Fourth ventricle is midline. Cranial vault intact. Impression: I do not visualize a definite acute hemorrhage but clinical correlation is advised and short-term follow-up recommended as clinically warranted Dictated By: Luis Carlos Cervantes MD Procedure(s): CT cervical spine con Accession Number(s): [id number] cc: Luis Carlos Cervantes MD; Mau Aguayo PA-C; Dash Bonner MD~ Examination: CT cervical spine without contrast 2-D sagittal reconstructions 2-D coronal reconstructions 3-D reconstructions. Exam date and time:February 22, 2025 0057 hours INDICATIONS: Patient fell today with injury to the neck, neck pain CTDI:vol (mGy) 743 DLP: (mGycm) 160 Technique: Multiple 2 mm axial sections of the cervical spine have been obtained. The coronal and sagittal reconstructions have been obtained. 3-D reconstructions have been obtained. Low dose protocols were performed. One or more of the following dose reduction techniques were used; automated exposure control, adjustment of the mA and/or KV according to patient size, use of iterative reconstruction technique. Findings: Axial sections demonstrate intact base of the skull. Grade 1 anterolisthesis of C3 on C4, C4 on C5 and C1 exhibit satisfactory relationship to the odontoid. No acute cervical vertebral body fracture seen. Alignment posterior spinous processes satisfactory. Impression: No acute cervical fracture. Dictated By: Luis Carlos Cervantes MD Procedure(s): CT head/brain wo con Accession Number(s): [id number] cc: Luis Carlos Cervantes MD; Mau Aguayo PA-C; Dash Bonner MD~ Examination: CT brain head without contrast. 2-D sagittal coronal reconstructions Date and time of exam:February 22, 2025, 0640 hours Comparison February 22, 2025, 0057 hours INDICATIONS: Patient fell this morning with injury to the head, head pain, subdural hemorrhage along the temporal convexities CTDI: vol (mGy):47 DLP: (mGycm):809 Technique: Multiple CT axial sections of the brain have been obtained, 5 mm slice thickness. Contrast has not been administered. 2-D sagittal, coronal reconstructions have been obtained Low dose protocols were performed. One or more of the following dose reduction techniques were used; automated exposure control, adjustment of the mA and/or KV according to patient size, use of iterative reconstruction technique. Findings: No significant ventricular enlargement. Intra-axial or extra-axial hemorrhage density is not seen. No mass effect or midline shift Basal cisterns are not remarkable. Fourth ventricle is midline. Cranial vault intact. Posterior left scalp soft tissue swelling and right posterior scalp soft tissue swelling Impression: No definite acute hemorrhage noted on this study No mass effect or midline shift Dictated By: Luis Carlos Cervantes MD
[2025-02-22 07:02] LABS: Thyroid Stimulating Hormone 3.41 uIU/mL (0.55-4.78); Uric Acid 3.6 mg/dL (3.1-7.8)
[2025-02-22 09:01] LABS: Alcohol, Blood Medical < 3.0 mg/dL (0-10.0)
[2025-02-22 10:45] LABS: Sodium 123 mMol/L (136-145)
[2025-02-22 12:30] LABS: Collection Type, Urine Clean Catch
[2025-02-22 12:52] LABS: Amphetamine/Methamp Scrn,U Negative (Negative); Bacteria,Urine Rare; Barbiturate Screen,Urine Negative (Negative); Benzodiazepines Screen,Urine Negative (Negative); Benzoylecgonine Screen, Ur Negative (Negative); Bilirubin,Urine Negative (Negative); Blood,Urine 1+ (Negative); Clarity,Urine Turbid (Clear/Hazy); Color,Urine Lt-Yellow (Lt Yel-Yel); Fentanyl Screen,Urine Negative (Negative); Glucose, Urine Negative (Negative); Ketones,Urine 1+ (Negative); Leukocyte Esterase,Urine Positive (Negative); Nitrite,Urine Positive (Negative); Opiate Screen,Urine Negative (Negative); Protein,Urine Negative (Neg - Trace); RBC,Urine 10 /hpf (0-3); Sodium,Urine Random 39.8 mMol/L (20.0-110.0); Specific Gravity,Urine 1.007 (1.001-1.035); Squamous Epithelial Cell,Urine 2 /hpf (0-5); THC Screen,Urine Negative (Negative); Urobilinogen,Urine Negative mg/dL (0.0-1.0); WBC,Urine 111 /hpf (0-5)
[2025-02-22 12:53] LABS: Culture Indicated,Urine Yes
[2025-02-22] MEDS: HEPARIN SOD INJ 5000 UNIT/ML VIAL SC ×2 (13:46→21:27)
--- NOTE | 2025-02-22 13:48 | ESHP_ITS ---
<Statement entered by Perico Wheeler MD - 02/23/25 11:41> Patient is 79 y/o female with medical hx for htn, hld and s/p partial left breast resection (stage I breast cancer) was BIBA for mechanical fall leading to left parietal laceration. CT of head and cervical spine were negative for bleeding and frx. Patient was found to have Na of 118 (baseline 130-125). Patient being followed by Dr. Bonner. Will be admitted for hyponatremia. Will fluid restrict patient, goal is to increase Na by 6-8 within 24 hours as patient is chronic hyponatremic. I discussed with and supervised the internet developer physician involved in the care of this patient. Patient assessment and plan was discussed with entire medicine team, including my attending. I agree with the assessment and plan as documented by internet developer doctor. Patient care was discussed with my attending physician Dr. Abel Wheeler, PGY-2 Documentation for date of: 02/22/25 HPI History of Present Illness Chief complaint: mechanical fall History of present illness: The patient is a 79-year-old female with previous medical history of hypertension, hyperlipidemia, stage I breast cancer status post partial left breast resection who was brought to the ED on 02/22/2025 after she tripped and fell and hit her head, she was found to have a left parietal scalp abrasion. She denies feeling dizzy, loss of consciousness. But she reports that she feels offkilter sometimes. She is following up with Dr. Bonner, for blood pressure control she is on multiple medications and she underwent workup for secondary hypertension. Renal artery angiogram was negative for stenosis. In the ED she was hemodynamically stable, afebrile, saturating well on room air. CT head was negative for intracranial pathology. Labs were remarkable for sodium of 118. Urine was unremarkable for signs of UTI, U tox was negative. Social history: Lives alone at home, ambulates independently, drives a car. Former smoker, having been smoking since 34 years old, occasional drinker, has not had a drink in the last few months. Patient was admitted for severe hyponatremia and mechanical fall. Treatment and management Surgical history: Tonsillectomy, left breast resection, carpal tunnel repair. Allergies: Denies Medications: Lisinopril, amlodipine, Nebivolol, rosuvastatin, rest of the med rec is pending. Review of Systems Review of Systems Systems Reviewed: All systems reviewed, normal except as documented Past Medical History Past Medical History NEUROLOGIC: Negative Neurological Disorders or Seizures CARDIAC: Positive Cardiac Disorders, Hypercholesterolemia and Hypertension; Negative Congestive Heart Failure or Edema RESPIRATORY: Negative Chronic Obstructive Pulmonary Disease (COPD), Asthma or Sleep Apnea GASTROINTESTINAL: Negative Gastrointestinal Disorders or Hepatitis GENITOURINARY: Negative Genitourinary Disorders or Renal Disease REPRODUCTIVE: Positive Previous Pregnancies MUSCULOSKELETAL: Positive Musculoskeletal Disorders, Arthritis and Carpal Tunnel Syndrome (LEFT); Negative Osteoporosis or Fractures ENDOCRINE: Negative Endocrine Disorders, Diabetes Mellitus Type 1 or Diabetes Mellitus Type 2 HEMATOLOGIC: Negative Blood Disorders or Anemia OTHER HISTORY: Positive Chicken Pox, Measles, Mumps, Rubella (Faroese Measles) and Pertussis; Negative Autoimmune Disease, Shingles, Falls, Blood Transfusions, Anesthesia Reactions, MRSA, Human Immunodeficiency Virus (HIV), Clostridium Difficile or Cancer Family History FAMILY HISTORY: Positive Family Cardiac Disorders and Family Surgery; Negative Family Psychiatric Problems, Family Respiratory Disorders, Family Gastrointestinal Problems, Family Cancer or Family Anesthesia Reaction Surgical History SURGICAL: Positive Tonsillectomy and Lumpectomy (LEFT); Negative Cardiac Surgery, Endocrine Surgery, Abdominal Surgery, Nephrectomy or Neurologic Surgery Social History SMOKING STATUS: Never smoker Exam Vital Signs Temp Pulse Resp BP Pulse Ox O2 Del Method 98.4 F 67 16 156/89 H 100 Room Air 02/22/25 13:39 02/22/25 13:39 02/22/25 13:39 02/22/25 13:39 02/22/25 13:39 02/22/25 13:39 Narrative Exam Physical Exam General: Awake and in no acute distress. Conversational and non-toxic appearing. HEENT: Normocephalic, atraumatic, mucous membranes moist. Heart: Regular rate and rhythm, no murmurs. Lungs: Clear to auscultation with no wheezing or crackles. Abdomen: Soft, nondistended, nontender, positive bowel sounds. ?No guarding or rebound tenderness. Neurologic: Alert and oriented x3, no gross neurological deficit, and patient able to move all 4 extremities. Extremities: No edema. Skin: No rash or ecchymoses. Results: Labs 02/23/25 04:50 02/23/25 10:41 Labs: Short CBC 02/22/25 Range/Units 02:52 WBC 7.0 (3.6-11.0) Thou/mm3 Hgb 12.2 (12.0-16.0) g/dL Hct 33.0 L (36.0-46.0) % Plt Count 257 D (140-440) Thou/mm3 BMP 02/22/25 02/22/25 02:52 09:53 Sodium 118 L* 123 L Potassium 4.6 Chloride 87 L Carbon Dioxide 21.4 BUN 12 Creatinine 0.9 Glucose 104 Calcium 10.3 Liver Function 02/22/25 Range/Units 02:52 Total Bilirubin 0.6 (0.3-1.2) mg/dL ALT 22 (10-49) U/L Alkaline Phosphatase 57 (46-116) U/L Albumin 5.1 H (3.4-4.8) gm/dL Urine 02/22/25 Range/Units 12:05 Urine Color Lt-Yellow (Lt Yel-Yel) Urine Clarity Turbid A (Clear/Hazy) Urine pH 7.0 (5.0-7.0) Ur Specific [place] 1.007 (1.001-1.035) Urine Protein Negative (Neg - Trace) Urine Glucose (UA) Negative (Negative) Quality Measures Quality Measures none Advance care planning discussed with:: patient Medications Home Medications and Allergies Home Medications ?Medication ?Instructions ?Recorded ?Confirmed ?Type latanoprost 0.005 % eye drops 1 drp ophthalmic (eye) Q DAY 03/02/21 02/22/25 History diphenhydramine HCl 25 mg capsule 25 mg PO QDAY PRN al lergy symptoms 01/23/25 02/22/25 History (Benadryl) krill oil 500 mg capsule 500 mg PO QDAY 01/23/2504/11 History nebivolol 5 mg tablet (Bystolic) 5 mg PO QDAY 01/23/25 02/22/25 History spironolactone 50 mg tablet 50 mg PO QAM 01/23/2504/11 History (Aldactone) amlodipine 5 mg tablet 5 mg PO QDAY 02/22/25 History ibuprofen 200 mg tablet (IBU-200) 400 mg PO HS PRN louann n 02/22/25 02/22/25 History lisinopril 40 mg tablet 40 mg PO QDAY 02/22/2502/22 History multivitamin (Multiple Vitamins 1 tab PO QDAY 02/22/25 02/22/25 History tablet) rosuvastatin 20 mg tablet 20 mg PO HS 02/22/25 5 History calcium 600 mg (as cap PO Q12H 02/23/25 Histor y carbonate)-vitamin D3 5 mcg (200 unit) capsule (Calcium 600 + D(3)) Allergies Allergy/AdvReac Type Severity Reaction Status Date / Time No Known Allergies Allergy Verified 02/21/25 23:57 Visit Medications Acetaminophen (Acetaminophen 325 Mg Tablet) 650 mg PO Q6H PRN PRN Reason: Fever >101.5 Stop: 03/24/25 09:13 Amlodipine Besylate (Amlodipine Besylate 5 Mg Tablet) 5 mg PO QDAY KRISTIN Stop: 03/25/25 08:59 Heparin Sodium (Porcine) (Heparin Sod Inj 5000 Unit/Ml Vial) 5,000 unit SC Q8HR KRISTIN Stop: 03/08/25 13:59 Metoclopramide HCl (Metoclopramide Inj 5 Mg/Ml Vial 2 Ml) 10 mg IVP Q6H PRN; Protocol PRN Reason: NAUSEA OR VOMITING Stop: 03/24/25 09:13 Pantoprazole Sodium (Pantoprazole 40 Mg Tablet) 40 mg PO QDAY KRISTIN Stop: 03/25/25 08:59 Discontinued Medications Diphtheria/Tetanus/Acell Pertussis (Diphth,Pertuss(Acell),Tet Vac 0.5 Ml Syr- Adult) 0.5 ml IMi .ONCE ONE Stop: 02/22/25 00:08 Last Admin: 02/22/25 03:36 Dose: 0.5 ml Assessment & Plan Plan The patient is a 79-year-old female with previous medical history of hypertension, hyperlipidemia, stage I breast cancer status post partial left breast resection who was brought to the ED on 02/22/2025 after she tripped and fell and hit her head, she was found to have a left parietal scalp abrasion. #Mechanical fall #Euvolemic Hypoosmolar Hyponatremia Patient reports feeling off kilter and unsteady, feeling generally weak. She reports that it has started after started on new blood pressure medication. Plan: - Na checks q6hr, 24 hours Na goal increase 6-8 mEq, if Na is over the limit, start D5W - Fluid restriction 1500 ml - If Na will not improve, will start salt tablets - Physical therapy #Hypertension Plan: - spironolactone on hold - lisinopril on hold - amlodipine 5 mg qday #Hyperlipidemia Plan: - atorvastation 40 mg qday (converted from rosuvastatin) Health maintenance: FEN: cardiac, renal, fluid restriction 1500 ml DVT prophylaxis: heparin sc GI prophylaxis: none Dispo: telemetry CODE STATUS: DNR/DNI Plan of care discussed with attending Dr. Roman, PGY-[address] Wheeler. Ute Zhou MD, PGY 1. Attending Provider Attestation/Addendum Sandra, Verena Roman DO, attest that I was physically present for the fonseca portions of the service and evaluated the patient with the resident and I reviewed and discussed the case with the resident and agree with the resident's findings and plans of care as documented above Patient is a 79-year-old female with past medical history of hypertension, hyperlipidemia, stage I breast cancer s/p resection who presents to the ED due to slip and fall after getting up the bathroom resulting in laceration in left side of head. Upon evaluation in the Ed, patient was found to have hyponatremia of 118. Patient states she has been eating balanced meals and properly seasons her food. She denies any dizziness, loss of consciousness, lightheadedness or seizure. She denies any fevers or chills. She takes lisinopril, spironolactone, rosuvastatin and nebivolol. Previous lab in 01/22/25 was 125. Spoke to pt's primary physician who suspects patient may have SIADH. Will fluid restrict to 1000mL. Will f/u with sodium q6h. If sodium does not correct appropriately, will start patient on salt tabs. Laceration on left side of head is dry and scabbed over, some old blood noted in hair. Patient is otherwise neurologically intact. Goal of 6-8mEq increase/ 24h.
[2025-02-22 15:53] LABS: Sodium 123 mMol/L (136-145)
[2025-02-22] MEDS: ACETAMINOPHEN 325 MG TABLET 650 MG PO (15:57)
[2025-02-22 21:44] LABS: Sodium 119 mMol/L (136-145)
[2025-02-22 22:42] LABS: Sodium 123 mMol/L (136-145)
[2025-02-23] VITALS (11 sets, daily range): BP systolic 95–154; BP diastolic 56–93; PULSE 59–73; RESP 15–96; TEMP 36–36.4; O2SAT 97–100; BMI 19.5
[2025-02-23] MEDS: ACETAMINOPHEN 325 MG TABLET 650 MG PO (03:17)
[2025-02-23 05:23] LABS: Basophils % (Auto) 1 % (0-2.5); Eosinophils # (Auto) 0.1 Thou/mm3 (0.0-0.5); Eosinophils % (Auto) 1 % (0-10); Hematocrit 34.7 % (36.0-46.0); Hemoglobin 12.9 g/dL (12.0-16.0); Immature Granulocytes % (Auto) 0 % (0-0); Immature Granulocytes Auto 0.01 Thou/mm3 (0.00-0.00); Lymphocytes # (Auto) 0.9 Thou/mm3 (1.0-4.8); Lymphocytes % (Auto) 14 % (10-50); Mean Corpuscular HGB Conc 37.2 g/dl (31.0-37.0); Mean Corpuscular Hemoglobin 32.2 pg (25.0-35.0); Mean Corpuscular Volume 87 fL (80-100); Monocytes # (Auto) 0.7 Thou/mm3 (0.0-0.8); Monocytes % (Auto) 12 % (0-12); Neutrophils # (Auto) 4.4 Thou/mm3 (1.8-7.7); Neutrophils % (Auto) 72 % (37-80); Nucleated Red Blood Cell % 0 /100 WBC (0); Platelet Count 300 Thou/mm3 (140-440); RDW Standard Deviation 40.5 fL (36.4-46.3); Red Blood Count 4.01 Miln/mm3 (4.00-5.20); White Blood Count 6.1 Thou/mm3 (3.6-11.0)
[2025-02-23] MEDS: HEPARIN SOD INJ 5000 UNIT/ML VIAL SC ×3 (05:49→21:50)
[2025-02-23 07:41] LABS: Alanine Aminotransferase 21 U/L (10-49); Albumin, Serum 4.6 gm/dL (3.4-4.8); Albumin/Globulin Ratio 1.8 (1.2-2.2); Alkaline Phosphatase 57 U/L (46-116); Anion Gap 11 (7-16); BUN/Creatinine Ratio 11 Ratio (12-20); Bilirubin,Total 0.8 mg/dL (0.3-1.2); Blood Urea Nitrogen 9 mg/dL (9-23); Calcium 9.8 mg/dL (8.3-10.6); Calcium (Corrected) 9.8 mg/dL (8.5-10.1); Carbon Dioxide 23.1 mMol/L (20.0-31.0); Chloride 92 mMol/L (98-107); Creatinine (Component) 0.8 mg/dL (0.6-1.3); Globulin 2.5 gm/dL (2.3-3.5); Glucose 102 mg/dL (74-106); Magnesium 1.9 mg/dL (1.6-2.6); Osmolality,Calculated 252 (275-295); Sodium 126 mMol/L (136-145); Total Protein 7.1 gm/dL (5.7-8.2); eGFR > 60 See Note
[2025-02-23] MEDS: PANTOPRAZOLE 40 MG TABLET PO (09:19)
[2025-02-23] MEDS: Lisinopril 20 MG TABLET 40 MG PO (09:19)
[2025-02-23] MEDS: SPIRONOLACTONE 25 MG TABLET 50 MG PO (09:20)
[2025-02-23] MEDS: NEBIVOLOL HCL 5 MG TABLET (NON-FORMULARY) PO (09:20)
[2025-02-23] MEDS: SODIUM CHLORIDE 1 GM TABLET PO ×2 (09:34→21:51)
[2025-02-23 11:37] LABS: Sodium 123 mMol/L (136-145)
--- NOTE | 2025-02-23 13:10 | PD.RESPRO ---
Documentation for date of: 02/23/25 Subjective Subjective Interval history: Patient was seen and examined by the bedside. No acute overnight events. Patient is feeling well. Was able to ambulate to the bathroom on her own. Sodium continues to be around 123. Was given a salt sablet. Will continue with fluid restriction and Na checks. PAtient reported feeling weak and unsteady since starting her new BP blood pressure medication regimen. Discontinued amlodipine. Resumed nebivolol, lisinopril, spironolactone. Exam Vital Signs Temp Pulse Resp BP Pulse Ox O2 Del Method 97.5 F 69 17 122/68 98 Room Air 02/23/25 12:00 02/23/25 12:00 02/23/25 12:00 02/23/25 12:02/23/25 12:02/23/25 12:00 Narrative Exam Physical Exam General: Awake and in no acute distress. Conversational and non-toxic appearing. HEENT: Normocephalic, atraumatic, mucous membranes moist. Heart: Regular rate and rhythm, no murmurs. Lungs: Clear to auscultation with no wheezing or crackles. Abdomen: Soft, nondistended, nontender, positive bowel sounds. ?No guarding or rebound tenderness. Neurologic: Alert and oriented x3, no gross neurological deficit, and patient able to move all 4 extremities. Extremities: No edema. Skin: No rash or ecchymoses. Objective Labs 02/24/25 05:33 02/24/25 05:33 Labs: Laboratory Results - last 24 hr 02/22/25 02/22/25 02/22/25 15:34 21:00 22:09 WBC RBC Hgb Hct MCV MCH MCHC RDW Std Deviation Plt Count Neut % (Auto) Lymph % (Auto) [place] % (Auto) Eos % (Auto) Baso % (Auto) Neut # (Auto) Lymph # (Auto) [place] # (Auto) Eos # (Auto) Baso # (Auto) Immature Gran # (Auto) Absolute Nucleated RBC Immature Gran % Nucleated RBC % Sodium 123 L 119 L* 123 L Potassium Chloride Carbon Dioxide Anion Gap BUN Creatinine Estim Creat Clear Calc eGFR BUN/Creatinine Ratio Glucose Calculated Osmolality Calcium Corrected Calcium Phosphorus Magnesium Total Bilirubin ALT Alkaline Phosphatase Total Protein Albumin Globulin Albumin/Globulin Ratio 02/23/25 02/23/25 04:50 10:41 WBC 6.1 RBC 4.01 Hgb 12.9 Hct 34.7 L MCV 87 MCH 32.2 MCHC 37.2 H RDW Std Deviation 40.5 Plt Count 300 D Neut % (Auto) 72 Lymph % (Auto) 14 [place] % (Auto) 12 Eos % (Auto) 1 Baso % (Auto) 1 Neut # (Auto) 4.4 Lymph # (Auto) 0.9 L [place] # (Auto) 0.7 Eos # (Auto) 0.1 Baso # (Auto) 0.0 Immature Gran # (Auto) 0.01 H Absolute Nucleated RBC 0.00 Immature Gran % 0 Nucleated RBC % 0 Sodium 126 L 123 L Potassium 5.0 Chloride 92 L Carbon Dioxide 23.1 Anion Gap 11 BUN 9 Creatinine 0.8 Estim Creat Clear Calc 51.0 L eGFR > 60 BUN/Creatinine Ratio 11 L Glucose 102 Calculated Osmolality 252 L Calcium 9.8 Corrected Calcium 9.8 Phosphorus 3.0 Magnesium 1.9 Total Bilirubin 0.8 ALT 21 Alkaline Phosphatase 57 Total Protein 7.1 Albumin 4.6 D Globulin 2.5 Albumin/Globulin Ratio 1.8 Quality Measures Quality Measures VTE prophylaxis Advance care planning discussed with:: patient Assessment & Plan Assessment Current Active Medications: Generic Name Dose Route Start Last Admin Trade Name Freq PRN Reason Stop Dose Admin Acetaminophen 650 mg 02/22/25 15:51 02/23/25 03:17 Acetaminophen 325 Mg Tablet PO 03/24/25 09:13 650 mg Q6H PRN Administration Fever >100.3 or pain Heparin Sodium (Porcine) 5,000 unit 02/22/25 14:00 02/23/25 05:49 Heparin Sod Inj 5000 Unit/Ml Vial SC 03/08/25 13:59 5,000 unit Q8HR KRISTIN Administration Lisinopril 40 mg 02/23/25 09:00 02/23/25 09:19 Lisinopril 20 Mg Tablet PO 03/25/25 08:59 40 mg QDAY KRISTIN Administration Metoclopramide HCl 10 mg 02/22/25 09:14 Metoclopramide Inj 5 Mg/Ml Vial 2 Ml IVP 03/24/25 09:13 Q6H PRN NAUSEA OR VOMITING Protocol Nebivolol 5 mg 02/23/25 09:00 02/23/25 09:20 Nebivolol Hcl 5 Mg Tablet (Non-Formulary) PO 03/25/25 08:59 5 mg QDAY KRISTIN Administration Pantoprazole Sodium 40 mg 02/23/25 09:00 02/23/25 09:19 Pantoprazole 40 Mg Tablet PO 03/25/25 08:59 40 mg QDAY KRISTIN Administration Spironolactone 50 mg 02/23/25 09:00 02/23/25 09:20 Spironolactone 25 Mg Tablet PO 03/25/25 08:59 50 mg QAM KRISTIN Administration Plan The patient is a 79-year-old female with previous medical history of hypertension, hyperlipidemia, stage I breast cancer status post partial left breast resection who was brought to the ED on 02/22/2025 after she tripped and fell and hit her head, she was found to have a left parietal scalp abrasion. #Mechanical fall #Hyponatremia Patient reports feeling off kilter and unsteady, feeling generally weak. She reports that it has started after started on new blood pressure medication. 02/23/25: 1 salt tablet was given. Plan: - Na checks q6hr, 24 hours Na goal increase 6-8 mEq, if Na is over the limit, start D5W - Fluid restriction 1000 ml #Hypertension Patient reports feeling weak and unsteady after starting some of her BP meds. She connect it to the amlodipine. Plan: - spironolactone resumed - lisinopril resumed - amlodipine 5 mg discontinued - cardiology consulted #Hyperlipidemia Plan: - atorvastation 40 mg qday (converted from rosuvastatin) Health maintenance: FEN: cardiac, renal, fluid restriction 1500 ml DVT prophylaxis: heparin sc GI prophylaxis: none Dispo: telemetry CODE STATUS: DNR/DNI Plan of care discussed with attending Dr. Roman. Ute Zhou MD, PGY 1. Attending Provider Attestation/Addendum Sandra, Verena Roman DO, attest that I was physically present for the fonseca portions of the service and evaluated the patient with the resident and I reviewed and discussed the case with the resident and agree with the resident's findings and plans of care as documented above Patient seen and evaluated this AM. Sodium remains at 123, will start salt tabs and continue to trend sodium q6h. No focal neurological deficits on exam. BP has been borderline low. Case discussed with her bilingual speech language pathologist, will cut lisinopril in half. If sodium uptrends above 126, anticipate DC in next 24-48h
--- NOTE | 2025-02-23 15:07 | PC.SS ---
Chantal Walker is 79 year old female admitted to [facility] for Fall. SS conducted bedside contact with the patient to complete initial assessment and to discuss discharge planning.? SW used all precautionary measures to complete initial. Role and reason for the contact was explained to Chantal. Pt is alert and oriented times 4. Pt gave verbal authorization for daughter, Ileana, to be present while assessment was completed. Patient confirmed demographic information and lives alone, address correct on facesheet. Patient identifies Esther Rocha, daughter, as her surrogate decision maker. Pt states prior to hospitalization pt is able to complete all ADL?s independently. Pt stated that belief the fall occurred was due to medication and this has been corrected by Dr. Bonner; pt states she was walking in house and chose not to turn on lights and that is when she tripped over something causing the fall. Pt does not use DME nor O2. Pt does not have diabetes or dialysis. Pts PCP is Dr. Dash Hart, last visit was about in January. Pharmacy of choice is [facility] on [address]. Pt has advance life directive and dtr Esther has this. Pt does not have history of mental health or substance. Discharge options discussed and the pt will return home. Pt is open to HH if necessary and did not have a preference on provider. Family will provide transportation upon DC. No further intervention required at this time, social science teacher would be available to address any further concerns. DC Plan: Home Contact: aliya Gabriel, Address: Confirmed on face sheet PCP: Dash Hart
[2025-02-23 16:39] LABS: Sodium 123 mMol/L (136-145)
--- NOTE | 2025-02-23 20:57 | PC.NURSE ---
REPORT HANDOFF GIVEN TO FATIMAH DIALLO
[2025-02-23 23:19] LABS: Sodium 126 mMol/L (136-145)
[2025-02-24] VITALS: BP 124/77; PULSE 62; PULSE 86; RESP 20; TEMP 36.1; O2SAT 98
--- NOTE | 2025-02-24 01:44 | ESCONSULT_ITS ---
RE: ANIA OCHOA : 1945 DATE OF CONSULTATION: 02/23/2025 CONSULTING PHYSICIANS: Hospitalist and resident physician. REASON FOR CONSULTATION: Evaluation of hyponatremia and coronary artery disease. HISTORY OF PRESENT: ILLNESS: The patient is a 79-year-old female with a history of hypertension, hypercholesterolemia, history of CAD coronary angiogram showing moderate CAD, RCA 40-50% narrowing and diagonal branch of the LAD showed 70% stenosis only recently a month ago. _ general weakness and falling and found to have severe hyponatremia and sodium level below 120, now 123. Fluid restriction and salt tabs are given. She has general complaints of weakness, but no chest pain or shortness of breath. ALLERGIES: NONE. MEDICATIONS AT HOME: She takes lisinopril 40 mg once a day. She also takes drugs for hypertension; spironolactone 50 mg daily, Nebivolol 5 mg daily, rosuvastatin 20 mg daily. PAST MEDICAL HISTORY: Hypertension, congestive heart failure, hypertension and negative angiogram. Question of renal artery stenosis. Angiogram showed no renal artery stenosis. SOCIAL HISTORY: She is a nonsmoker, does not drink alcoholic beverages. FAMILY HISTORY: Not contributory. PHYSICAL EXAMINATION: General: _ pleasant female, alert, awake, in no acute distress. Vital Signs: Her blood pressure is controlled well 110 to 120 systolic. , respirations 16, temperature normal. HEENT: Head is atraumatic, normocephalic. Eyes normal. ENT unremarkable. Neck: Supple. No JVD. Carotid pulse felt with no bruits. Chest: Symmetrical. Lungs: Clear. No rales or rhonchi. Heart: S1, S2 regular. S4 gallop heard. Abdomen: Thin and soft. Extremities: No edema. /Rectal: Not performed. SASH ASSEMBLER: Normal. DIAGNOSTIC DATA: Electrocardiogram shows sinus rhythm, nonspecific changes. ASSESSMENT: 1. 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 2. Hypertension. 3. Moderate CAD, diagonal branch disease, 70% in right coronary artery stenosis, stable. RECOMMENDATIONS: Continue fluid restriction and sodium tablets for now. Sodium is 128 and 130, she can be discharged home tomorrow. DT: 23:59:01 TT: 01:21:00 Ref: [id number] - TID: [id number] [facility]
[2025-02-24 04:00] VITALS: BP 107/71; PULSE 62; PULSE 73; RESP 19; TEMP 36.3; O2SAT 99
[2025-02-24] MEDS: HEPARIN SOD INJ 5000 UNIT/ML VIAL SC (05:28)
[2025-02-24 05:51] LABS: Basophils % (Auto) 1 % (0-2.5); Eosinophils # (Auto) 0.2 Thou/mm3 (0.0-0.5); Eosinophils % (Auto) 3 % (0-10); Hematocrit 34.5 % (36.0-46.0); Hemoglobin 12.7 g/dL (12.0-16.0); Immature Granulocytes % (Auto) 0 % (0-0); Immature Granulocytes Auto 0.01 Thou/mm3 (0.00-0.00); Lymphocytes # (Auto) 1.1 Thou/mm3 (1.0-4.8); Lymphocytes % (Auto) 22 % (10-50); Mean Corpuscular HGB Conc 36.8 g/dl (31.0-37.0); Mean Corpuscular Hemoglobin 32.4 pg (25.0-35.0); Mean Corpuscular Volume 88 fL (80-100); Monocytes # (Auto) 0.6 Thou/mm3 (0.0-0.8); Monocytes % (Auto) 13 % (0-12); Neutrophils % (Auto) 61 % (37-80); Nucleated Red Blood Cell % 0 /100 WBC (0); Platelet Count 281 Thou/mm3 (140-440); RDW Standard Deviation 42.5 fL (36.4-46.3); Red Blood Count 3.92 Miln/mm3 (4.00-5.20)
[2025-02-24 06:28] LABS: Alanine Aminotransferase 19 U/L (10-49); Albumin, Serum 4.4 gm/dL (3.4-4.8); Albumin/Globulin Ratio 1.8 (1.2-2.2); Alkaline Phosphatase 56 U/L (46-116); Anion Gap 8 (7-16); BUN/Creatinine Ratio 16 Ratio (12-20); Bilirubin,Total 0.6 mg/dL (0.3-1.2); Blood Urea Nitrogen 13 mg/dL (9-23); Calcium 9.6 mg/dL (8.3-10.6); Calcium (Corrected) 9.6 mg/dL (8.5-10.1); Carbon Dioxide 23.4 mMol/L (20.0-31.0); Chloride 96 mMol/L (98-107); Creatinine (Component) 0.8 mg/dL (0.6-1.3); Estimated Creatinine Clearance 51.9 mL/min (>60); Globulin 2.4 gm/dL (2.3-3.5); Glucose 104 mg/dL (74-106); Magnesium 1.8 mg/dL (1.6-2.6); Osmolality,Calculated 255 (275-295); Potassium 4.4 mMol/L (3.4-5.1); Sodium 127 mMol/L (136-145); Total Protein 6.8 gm/dL (5.7-8.2); eGFR > 60 See Note
[2025-02-24 06:50] VITALS: PULSE 71; RESP 22; RESP 99
[2025-02-24 08:00] VITALS: BP 104/54; PULSE 73; PULSE 87; RESP 16; TEMP 36.4; O2SAT 98
[2025-02-24] MEDS: PANTOPRAZOLE 40 MG TABLET PO (08:32)
[2025-02-24] MEDS: SODIUM CHLORIDE 1 GM TABLET PO (08:32)
[2025-02-24 11:35] VITALS: BP 119/57; PULSE 66; RESP 17; TEMP 36.4; O2SAT 100
--- NOTE | 2025-02-24 12:05 | PC.SS ---
Update: Plan is to d/c patient home today.
--- NOTE | 2025-02-24 13:06 | PC.PT ---
Patient was approached at 10am. A female visitor at bedside. As per patient, she was already I with transfers and ambulation without AD. No further needs at this time. Will cancel PT evaluation. RN made aware.
--- NOTE | 2025-02-24 13:30 | ESDS_ITS ---
<Statement entered by Verena Roman DO - 02/24/25 16:43> I, Verena Roman DO, attest that I was physically present for the fonseca portions of the service and evaluated the patient with the resident and I reviewed and discussed the case with the resident and agree with the resident's findings and plans of care as documented above <Statement entered by Perico Wheeler MD - 02/24/25 14:16> I discussed with and supervised the advertising intern physician involved in the care of this patient. Patient assessment and plan was discussed with entire medicine team, including my attending. I agree with the assessment and plan as documented by advertising intern doctor. Patient care was discussed with my attending physician Dr. Abel Wheeler, PGY-2 Planned Discharge Date 02/24/25 DS: Providers Provider Date of admission: 02/22/25 08:59 Primary care physician: Dash Bonner MD Admitting Provider: Verena Roman DO Attending Provider on Admission: Verena Roman DO Consults: 02/23/25 13:06 Consult to Cardiology Routine Comment: Consulting Provider: Tomasa Rodgers Attending Provider on DC: Ute Zhou MD Discharging Provider: Ute Zhou MD DS: Diagnosis Problem List Completed Was Problem List Reviewed/Reconciled?: Yes Hospital Course Hospital Course Hospital course: The patient is a 79-year-old female with a previous medical history of hypertension, hyperlipidemia, stage I breast cancer status post partial left breast resection who was brought to the ED on 02/22/2025 after she tripped and fell and hit her head. She did not feel dizzy, denies loss of consciousness. But she reports that she feels offkilter sometimes. She underwent workup for secondary hypertension since she requires multiple blood pressure medications, renal artery angiogram was negative for renal artery stenosis. Head imaging was negative for acute intracranial pathology. She was found to have a sodium of 118. She was admitted for mechanical fall and hyponatremia management. She was started on fluid restriction, initially lisinopril and other blood pressure medications were held. Her sodium started to improve, patient started to feel better. Wireworker Dr. Rodgers was consulted, blood pressure medication regimen was adjusted. Patient was seen and examined at the bedside and was medically cleared for discharge home. Hospital diagnoses: #Mechanical fall #Euvolemic Hypoosmolar Hyponatremia, suspect SIADH #Hypertension #Hyperlipidemia Discharge recommednations: - Follow-up with yout PCP Dr. Bonner in 1 week ?Stop taking lisinopril 40 mg daily and spironolactone 50mg daily ? Stop taking amlodipine 5 mg daily ?Start taking sodium tablets 1 g twice daily - Continue the rest of your medication as scheduled - Follow-up with Dr. Rodgers in 2 weeks ?If your symptoms worsen come to the ED or call 911 Plan of care discussed with attending Dr. Roman, PGY-[address] Wheeler. Ute Zhou MD, PGY 1. Time Spent with Patient Time attestation: Total time spent providing and/or coordinating discharge services: Time spent: Greater than 30 minutes Exam Vital Signs Temp Pulse Resp BP Pulse Ox O2 Del Method 97.6 F 66 17 119/57 L 100 Room Air 02/24/25 11:35 02/24/25 11:35 02/24/25 11:35 02/24/25 11:35 02/24/25 11:35 02/24/25 11:35 Narrative Exam Physical Exam General: Awake and in no acute distress. Conversational and non-toxic appearing. HEENT: Normocephalic, atraumatic, mucous membranes moist. Heart: Regular rate and rhythm, no murmurs. Lungs: Clear to auscultation with no wheezing or crackles. Abdomen: Soft, nondistended, nontender, positive bowel sounds. ?No guarding or rebound tenderness. Neurologic: Alert and oriented x3, no gross neurological deficit, and patient able to move all 4 extremities. Extremities: No edema. Skin: No rash or ecchymoses. Discharge Plan Plan Patient Disposition: HOME (Self Care) Patient condition on transfer: Stable Care Plan Goals: Discharge recommendations: - Follow-up with yout PCP Dr. Bonner in 1 week ?Stop taking lisinopril 40 mg daily and spironolactone 50mg daily ? Stop taking amlodipine 5 mg daily ?Start taking sodium tablets 1 g twice daily - Continue the rest of your medication as scheduled - Follow-up with Dr. Rodgers in 2 weeks ?If your symptoms worsen come to the ED or call 911 Prescriptions/Referrals Prescriptions/Med Rec: New sodium chloride 1,000 mg Tablet,Soluble 1,000 mg PO BID 14 Days Qty: 28 0RF Rx Instructions: Take one tablet two time a day Continued latanoprost 0.005 % Drops 1 drp OPHTHALMIC (EYE) QDAY nebivolol [Bystolic] 5 mg tablet 5 mg PO QDAY krill oil 500 mg capsule 500 mg PO QDAY rosuvastatin 20 mg tablet 20 mg PO HS Patient Comments: TAKE 1 TABLET BY MOUTH EVERY DAY FOR 30 DAYS calcium carbonate-vitamin D3 [Calcium 600 + D(3)] 600 mg-5 mcg (200 unit) capsule PO Q12H Discontinued spironolactone [Aldactone] 50 mg tablet 50 mg PO QAM amlodipine 5 mg tablet 5 mg PO QDAY Patient Comments: TAKE 1 TABLET BY MOUTH EVERY DAY FOR 90 DAYS lisinopril 40 mg tablet 40 mg PO QDAY Patient Comments: TAKE 1 TABLET BY MOUTH EVERY DAY FOR 90 DAYS No Action diphenhydramine HCl [Benadryl] 25 mg capsule 25 mg PO QDAY PRN (Reason: allergy symptoms) multivitamin [Multiple Vitamins] Tablet 1 tab PO QDAY ibuprofen [IBU-200] 200 mg tablet 400 mg PO HS PRN (Reason: pain) Referrals: Dash Bonner MD [Primary Care Provider] - Patient/Caregiver Discharge Instructions Education Materials: Hyponatremia Dc Print Language: Armenian Stand Alone Forms: Hina Award Info., Patient Portal Info Letter Discharge Order Discharge Orders: Discharge (Routine); Ordered 02/24/25 Ordered By: Ute Zhou Quality Discharge Quality Measures VTE prophylaxis
== END 2025-02-24 11:40 | disposition home or self-care (01) | DRG 605 ==
LOC: SERX 02-22 08:38 → SERHOLD 02-22 09:31 → S2NX 02-22 15:14
PROVIDERS: Internal Medicine; Physician Assistant; Admitting Provider Internal Medicine; Emergency Provider Family Medicine; PCP Internal Medicine; Visit Provider Internal Medicine
DX: S01.01XA Laceration without foreign body of scalp, initial encounter (principal); E22.2 Syndrome of inappropriate secretion of antidiuretic hormone; I10 Essential (primary) hypertension; E78.00 Pure hypercholesterolemia, unspecified; Z85.3 Personal history of malignant neoplasm of breast; W01.0XXA Fall on same level from slipping, tripping and stumbling without subsequent striking against object, initial encounter; Z66 Do not resuscitate; I25.10 Atherosclerotic heart disease of native coronary artery without angina pectoris; Z23 Encounter for immunization; Z79.899 Other long term (current) drug therapy; Z87.891 Personal history of nicotine dependence
CPT/HCPCS: 36415; 70450; 72125; 80053; 80307; 80320; 81001; 83735; 84100; 84295; 84300; 84443; 84550; 85025; 85610; 85730; 87077; 87086; 87186; 90471; 90715; 96372; 99285; J1644; A9270; G0480

== ENCOUNTER → 2025-03-14 | Outpatient (CLI) | payer MEDICARE, BC, SELFPAY ==
[2025-03-14 09:28] LABS: Alanine Aminotransferase 20 U/L (10-49); Albumin, Serum 4.7 gm/dL (3.4-4.8); Alkaline Phosphatase 63 U/L (46-116); Anion Gap 7 (7-16); Aspartate Amino Transferase 24 U/L (0-34); BUN/Creatinine Ratio 15 Ratio (12-20); Bilirubin,Direct 0.2 mg/dL (0.0-0.3); Bilirubin,Total 0.7 mg/dL (0.3-1.2); Blood Urea Nitrogen 12 mg/dL (9-23); Calcium 9.9 mg/dL (8.3-10.6); Carbon Dioxide 27.6 mMol/L (20.0-31.0); Cardiac Risk Estimate 2.5 RATIO (3.7-5.6); Chloride 103 mMol/L (98-107); Cholesterol 147 mg/dL (132-200); Creatinine (Component) 0.8 mg/dL (0.6-1.3); Glucose 100 mg/dL (74-106); HDL Cholesterol 59 mg/dL (40-60); LDL Cholesterol,Calculated 70 mg/dL (0-130); Osmolality,Calculated 275 (275-295); Potassium 4.3 mMol/L (3.4-5.1); Sodium 138 mMol/L (136-145); Total Protein 7.2 gm/dL (5.7-8.2); Triglycerides 89 mg/dL (30-150); eGFR > 60 See Note
== END | disposition home or self-care (01) ==
LOC: COPL 08:19
PROVIDERS: PCP Internal Medicine; Referring Provider Internal Medicine Cardiovascular Disease; Visit Provider Internal Medicine Cardiovascular Disease
DX: I70.1 Atherosclerosis of renal artery (principal)
CPT/HCPCS: 36415; 80048; 80061; 80076; 84100

== ENCOUNTER → 2025-04-30 | Outpatient (CLI) | payer MEDICARE, BC, SELFPAY ==
[2025-04-30 10:19] LABS: Albumin, Serum 4.6 gm/dL (3.4-4.8); Anion Gap 9 (7-16); BUN/Creatinine Ratio 15 Ratio (12-20); Blood Urea Nitrogen 12 mg/dL (9-23); Calcium 10.3 mg/dL (8.3-10.6); Calcium (Corrected) 10.3 mg/dL (8.5-10.1); Carbon Dioxide 29.1 mMol/L (20.0-31.0); Chloride 101 mMol/L (98-107); Creatinine (Component) 0.8 mg/dL (0.6-1.3); Glucose 100 mg/dL (74-106); Osmolality,Calculated 277 (275-295); Phosphorous 3.6 mg/dL (2.4-5.1); Potassium 4.1 mMol/L (3.4-5.1); Sodium 139 mMol/L (136-145); eGFR > 60 See Note
== END | disposition home or self-care (01) ==
LOC: COPL 09:17
PROVIDERS: PCP Internal Medicine; Referring Provider Internal Medicine; Visit Provider Internal Medicine
DX: I10 Essential (primary) hypertension (principal)
CPT/HCPCS: 36415; 80069

== ENCOUNTER → 2025-06-04 | Outpatient (CLI) | payer MEDICARE, BC, SELFPAY ==
[2025-06-04 10:19] LABS: Collection Type, Urine Clean Catch
[2025-06-04 10:50] LABS: Basophils # (Auto) 0.0 Thou/mm3 (0.0-0.2); Basophils % (Auto) 1 % (0-2.5); Eosinophils # (Auto) 0.1 Thou/mm3 (0.0-0.5); Eosinophils % (Auto) 2 % (0-10); Hematocrit 41.1 % (36.0-46.0); Hemoglobin 13.9 g/dL (12.0-16.0); Immature Granulocytes Auto 0.01 Thou/mm3 (0.00-0.00); Lymphocytes # (Auto) 1.3 Thou/mm3 (1.0-4.8); Lymphocytes % (Auto) 24 % (10-50); Mean Corpuscular HGB Conc 33.8 g/dl (31.0-37.0); Mean Corpuscular Hemoglobin 32.0 pg (25.0-35.0); Mean Corpuscular Volume 95 fL (80-100); Monocytes # (Auto) 0.6 Thou/mm3 (0.0-0.8); Monocytes % (Auto) 12 % (0-12); Neutrophils # (Auto) 3.3 Thou/mm3 (1.8-7.7); Neutrophils % (Auto) 61 % (37-80); Nucleated Red Blood Cell # 0.00 Thou/mm3 (0.00-0.00); Nucleated Red Blood Cell % 0 /100 WBC (0); Platelet Count 302 Thou/mm3 (140-440); RDW Standard Deviation 44.1 fL (36.4-46.3); Red Blood Count 4.34 Miln/mm3 (4.00-5.20); White Blood Count 5.3 Thou/mm3 (3.6-11.0)
[2025-06-04 10:59] LABS: Bacteria,Urine Rare; Bilirubin,Urine Negative (Negative); Blood,Urine Negative (Negative); Color,Urine Lt-Yellow (Lt Yel-Yel); Glucose, Urine Negative (Negative); Ketones,Urine Negative (Negative); Leukocyte Esterase,Urine Positive (Negative); Nitrite,Urine Positive (Negative); PH,Urine 7.0 (5.0-7.0); Protein,Urine Negative (Neg - Trace); RBC,Urine 1 /hpf (0-3); Specific Gravity,Urine 1.006 (1.001-1.035); Squamous Epithelial Cell,Urine 4 /hpf (0-5); Urobilinogen,Urine Negative mg/dL (0.0-1.0); WBC,Urine 39 /hpf (0-5)
[2025-06-04 11:00] LABS: Clarity,Urine Hazy (Clear/Hazy)
[2025-06-04 11:10] LABS: Albumin, Serum 4.5 gm/dL (3.4-4.8); Anion Gap 7 (7-16); BUN/Creatinine Ratio 11 Ratio (12-20); Blood Urea Nitrogen 9 mg/dL (9-23); Calcium 10.3 mg/dL (8.3-10.6); Calcium (Corrected) 10.3 mg/dL (8.5-10.1); Carbon Dioxide 29.7 mMol/L (20.0-31.0); Chloride 100 mMol/L (98-107); Creatinine (Component) 0.8 mg/dL (0.6-1.3); Glucose 85 mg/dL (74-106); Osmolality,Calculated 271 (275-295); Phosphorous 3.7 mg/dL (2.4-5.1); Potassium 5.0 mMol/L (3.4-5.1); Sodium 137 mMol/L (136-145); eGFR > 60 See Note
== END | disposition home or self-care (01) ==
LOC: COPL 09:20
PROVIDERS: PCP Internal Medicine; Referring Provider Internal Medicine; Visit Provider Internal Medicine
DX: I10 Essential (primary) hypertension (principal)
CPT/HCPCS: 36415; 80069; 81001; 85025

== ENCOUNTER → 2025-07-04 | Outpatient (CLI) | payer MEDICARE, BC, SELFPAY ==
--- NOTE | 2025-07-04 09:15 | XR_ITS ---
Examination: Screening digital mammography, bilateral Computer aided detection 3-D breast Tomosynthesis, bilateral Date and time of exam: 07/04/2025, 8:51 a.m. Comparisons: November 2020 through June 2024 Indications: Screening, personal history of left breast cancer with lumpectomy Technique: Nonmagnified MLO, CC views of the breasts to been obtained, reconstructed from 3-D Tomosynthesis images. R2 computer aided detection program utilized for evaluation of suspicious masses and/or abnormal calcifications. 3-D Tomosynthesis images obtained. Technologist: Findings: There are scattered areas of fibroglandular density. Stable postoperative changes left breast. Evidence of abnormal masses or suspicious calcifications. Impression: BI-RADS category 2: Benign findings Recommend 1 year follow-up mammogram
== END | disposition home or self-care (01) ==
LOC: CDIM 08:44
PROVIDERS: Referring Provider Internal Medicine; Visit Provider Internal Medicine
DX: Z12.31 Encounter for screening mammogram for malignant neoplasm of breast (principal); R92.323 Mammographic fibroglandular density, bilateral breasts
CPT/HCPCS: 77063; 77067

== ENCOUNTER → 2025-09-17 | Outpatient (CLI) | payer MEDICARE, BC, SELFPAY ==
[2025-09-17 10:00] LABS: Collection Type, Urine Clean Catch
[2025-09-17 10:23] LABS: Basophils # (Auto) 0.0 Thou/mm3 (0.0-0.2); Basophils % (Auto) 1 % (0-2.5); Eosinophils # (Auto) 0.1 Thou/mm3 (0.0-0.5); Eosinophils % (Auto) 2 % (0-10); Hematocrit 40.6 % (36.0-46.0); Hemoglobin 13.5 g/dL (12.0-16.0); Immature Granulocytes Auto 0.02 Thou/mm3 (0.00-0.00); Lymphocytes # (Auto) 1.2 Thou/mm3 (1.0-4.8); Lymphocytes % (Auto) 17 % (10-50); Mean Corpuscular HGB Conc 33.3 g/dl (31.0-37.0); Mean Corpuscular Hemoglobin 31.3 pg (25.0-35.0); Mean Corpuscular Volume 94 fL (80-100); Monocytes # (Auto) 0.7 Thou/mm3 (0.0-0.8); Monocytes % (Auto) 9 % (0-12); Neutrophils # (Auto) 5.1 Thou/mm3 (1.8-7.7); Neutrophils % (Auto) 72 % (37-80); Nucleated Red Blood Cell # 0.00 Thou/mm3 (0.00-0.00); Nucleated Red Blood Cell % 0 /100 WBC (0); Platelet Count 284 Thou/mm3 (140-440); RDW Standard Deviation 53.6 fL (36.4-46.3); Red Blood Count 4.32 Miln/mm3 (4.00-5.20); White Blood Count 7.1 Thou/mm3 (3.6-11.0)
[2025-09-17 10:39] LABS: Albumin, Serum 4.5 gm/dL (3.4-4.8); Anion Gap 9 (7-16); BUN/Creatinine Ratio 20 Ratio (12-20); Blood Urea Nitrogen 14 mg/dL (9-23); Calcium 9.7 mg/dL (8.3-10.6); Calcium (Corrected) 9.7 mg/dL (8.5-10.1); Carbon Dioxide 29.6 mMol/L (20.0-31.0); Chloride 100 mMol/L (98-107); Creatinine (Component) 0.7 mg/dL (0.6-1.3); Glucose 119 mg/dL (74-106); Osmolality,Calculated 279 (275-295); Phosphorous 4.1 mg/dL (2.4-5.1); Potassium 4.1 mMol/L (3.4-5.1); Sodium 139 mMol/L (136-145); eGFR > 60 See Note
[2025-09-17 11:47] LABS: Bacteria,Urine Rare; Bilirubin,Urine Negative (Negative); Blood,Urine 1+ (Negative); Clarity,Urine Turbid (Clear/Hazy); Color,Urine Lt-Yellow (Lt Yel-Yel); Glucose, Urine Negative (Negative); Ketones,Urine Negative (Negative); Leukocyte Esterase,Urine Positive (Negative); Nitrite,Urine Negative (Negative); PH,Urine 6.0 (5.0-7.0); Protein,Urine Trace (Neg - Trace); RBC,Urine 8 /hpf (0-3); Specific Gravity,Urine 1.011 (1.001-1.035); Squamous Epithelial Cell,Urine 4 /hpf (0-5); Urobilinogen,Urine Negative mg/dL (0.0-1.0); WBC,Urine 41 /hpf (0-5)
== END | disposition home or self-care (01) ==
LOC: COPL 09:21
PROVIDERS: PCP Internal Medicine; Referring Provider Internal Medicine; Visit Provider Internal Medicine
DX: I10 Essential (primary) hypertension (principal); N39.0 Urinary tract infection, site not specified
CPT/HCPCS: 36415; 80069; 81001; 85025